=== PATIENT | female | born 1955 | race Caucasian/White ===

== ENCOUNTER 2023-12-12 10:30 | Outpatient (RCR) | payer OTHER, SELFPAY | END 2024-02-09 14:07 | disposition home or self-care (01) | PROVIDERS: PCP Family Medicine; Visit Provider Family Medicine | DX: G43.009 Migraine without aura, not intractable, without status migrainosus (principal); R42 Dizziness and giddiness; Z51.89 Encounter for other specified aftercare | CPT/HCPCS: 95992; 97140; 97163; 97530; 97535 ==

== ENCOUNTER 2024-01-23 11:13 | Emergency (ER) | payer OTHER, SELFPAY ==
[2024-01-23 11:22] VITALS: BP 114/67; PULSE 77; RESP 18; TEMP 36.8; O2SAT 97; BMI 28.2
--- NOTE | 2024-01-23 11:56 | ED.GENADULT ---
HPI - General Adult General Time Seen by Provider: 11:57 Date Seen: 01/23/24 Chief complaint: Lower Extremity Swelling Stated complaint: Left leg poss DVT Time Seen by Provider: 01/23/24 11:50 Source: patient, RN notes reviewed and old records reviewed Mode of arrival: ambulatory Limitations: no limitations History of Present Illness HPI narrative: Rosana is a very pleasant 68-year-old female with history of lung cancer currently on monoclonal antibody as well as chemotherapy drug who comes to the emergency room for evaluation of lower extremity swelling and redness of the left leg. Rosana noted the onset of fluid retention in her lower extremities in November after her 4th round of infusions. She notes that her infusions are likely causing fluid retention. She did note the onset of a red patch on her left leg in the past few weeks. Unfortunately that worsened about a week ago and the redness is now creeping up to her knee. She also notes that her left leg is more swollen than the right and although this has been the case since the onset of lower extremity edema it seems to be worse today. She notes that she did have a sore on her 2nd toe that a today appears healed but has been bothering her. She and her recently returned from a trip to [place]. On that trip she rode horses, road in a [id number] utility vehicle and [place]. She does not remember any injury to this area or open sores. She has not had any fever chills and has not been feeling poorly. No history of DVT in the past. Denies a history of MRSA or hard to treat infections in the past. Patient is not experienced any chest pain, unusual shortness of breath, hemoptysis. Related Data Home Medications ?Medication ?Instructions ?Recorded ?Confirmed clindamycin phosphate 1 % topical 1 applic topical BID 01/23/24 01/23/24 gel clobetasol 0.05 % topical ointment 1 applic topical BID 01/23/24 01/23/24 dexamethasone 0.5 mg/5 mL oral 1 mg PO Q6H 01/23/24 01/23/24 elixir dexamethasone 0.5 mg/5 mL oral 0.5 mg PO Q12H 01/23/24 01/23/24 solution folic acid 1 mg tablet 1 mg PO DAILY 01/23/24 01/23/24 furosemide 20 mg tablet 20 mg PO DAILY 01/23/24 01/23/24 ketoconazole 2 % shampoo topical 01/23/24 lidocaine 5 % topical ointment topical 01/23/24 lorazepam 0.5 mg tablet 0.5 mg PO DAILY PRN anxiety 01/23/24 01/23/24 meclizine 25 mg tablet PO 01/23/24 nortriptyline 10 mg capsule mg PO 01/23/24 nystatin 100,000 unit/mL oral 5 ml PO QID 01/23/24 01/23/24 suspension olanzapine 5 mg tablet 5 mg PO DAILY 01/23/24 01/23/24 omeprazole 40 mg capsule,delayed 40 mg PO DAILY 01/23/24 01/23/24 release ondansetron 4 mg disintegrating 4 mg PO Q8H PRN nausea/vomiting 01/23/24 01/23/24 tablet prochlorperazine maleate 10 mg 10 mg PO Q6H PRN nausea/vomiting 01/23/24 01/23/24 tablet rizatriptan 10 mg tablet 10 mg PO Q2H PRN migraine 01/23/24 01/23/24 triamcinolone acetonide 0.1 % 1 applic topical BID-TID 01/23/24 01/23/24 topical cream Allergies Allergy/AdvReac Type Severity Reaction Status Date / Time aprepitant [From Emend] Allergy Unknown Verified 01/23/24 11:32 fosaprepitant [From Emend] Allergy Unknown Verified 01/23/24 11:32 Review of Systems Status of ROS: Reports: 10 or more systems reviewed and unremarkable except as noted in History and below Const: Denies: fever or chills ENMT: Denies: nasal congestion Cardio: Reports: swelling of feet/ankles and shortness of breath with exertion (Chronic and unchanged); Denies: chest pain Resp: Reports: shortness of breath (Chronic and unchanged); Denies: cough GI: Denies: abdominal pain or nausea Musculo: Reports: extremity swelling (Acute on chronic); Denies: back pain Integ/Breast: Reports: redness and skin pain [facility] Social History Smoking Status: Former smoker How often do you have a drink containing alcohol: never How often do you have six or more drinks on one occasion: Never AUDIT-C Alcohol total score: 0 Non-prescribed substance use: denies use service: No Exam Narrative: Exam Narrative: Alert and oriented. No acute distress. Normal mentation. External ears eyes nose clear. Heart with regular rate and rhythm and lungs are clear bilaterally. Moving all extremities. Examination of the lower extremity show bilateral 1 to 2+ edema. However slightly increased edema on the left compared to right with associated erythema circumferential from just above the ankle to just below the knee. This area is warm to the touch. I do not see any open lesions. Const: Vital Signs, click to edit/add: Vital Signs - 24 hr 01/23/24 11:22 Temperature 98.3 F Pulse Rate [Right Pulse Oximeter] 77 Respiratory Rate 18 Blood Pressure [Ri ght Upper Arm] 114/67 Pulse Oximetry 97 Oxygen Delivery Me thod Room Air Documenting provider has reviewed patient's vital signs: yes Course Course ED Course: At this time differential diagnosis includes but is not limited to DVT, cellulitis, fluid retention secondary to chemotherapy, chemotherapy reaction. Given the fact that this is unilateral do not think this is a reaction to the chemotherapy or monoclonal antibody. Would however check CBC, comprehensive, magnesium as she has been low in the past as well as CRP. Will obtain lower extremity really ultrasound as well. Reevaluation(s) Reevaluation #1: Doppler negative for DVT. Initial plan was to treat suspected cellulitis with Ancef as patient has not had history of MRSA or other difficult to treat infections. Upon further discussion however Rosana notes that she had had an open sore on her toe for quite some time. I do examine this area and is now healed. She states that while in [place] she did go into a [employer] and was waiting in it. It was not particularly clear. Therefore I do think that she needs broader spectrum antibiotic. Do suggest Rocephin which she requests IM 1 g followed by Augmentin 875 p.o. b.i.d. for an additional 6 days. Vital Signs Vital signs: Initial Vital Signs Temperature 98.3 F 01/23/24 11:22 Temperature Source Temporal Artery Scan 01/23/24 11:22 Pulse Rate 77 01/23/24 11:22 Pulse Rhythm Regular 01/23/24 11:22 Pulse Strength 3+ Normal 01/23/24 11:22 Respiratory Rate 18 01/23/24 11:22 Blood Pressure 114/67 01/23/24 11:22 Blood Pressure Mean 82 01/23/24 11:22 Blood Pressure Position Sitting 01/23/24 11:22 Pulse Oximetry 97 01/23/24 11:22 Oxygen Delivery Method Room Air 01/23/24 11:22 Vital Signs Temperature 98.3 F 01/23/24 11:22 Pulse Rate 77 01/23/24 11:22 Respiratory Rate 18 01/23/24 11:22 Blood Pressure 114/67 01/23/24 11:22 Pulse Oximetry 97 01/23/24 11:22 Oxygen Delivery Method Room Air 01/23/24 11:22 Temperature 98.3 F 01/23/24 11:22 Pulse Rate 77 01/23/24 11:22 Respiratory Rate 18 01/23/24 11:22 Blood Pressure 114/67 01/23/24 11:22 Pulse Oximetry 97 01/23/24 11:22 Oxygen Delivery Method Room Air 01/23/24 11:22 Medications Administered Medications: Discontinued Medications Generic Name Dose Route Start Last Admin Trade Name Giuliana PRN Reason Stop Dose Admin Ceftriaxone Sodium 1 gm 01/23/24 13:52 01/23/24 14:00 Ceftriaxone 1 Gm Vial IM 01/23/24 13:53 1 gm ONCE ONE Administration Lidocaine HCl 2.1 ml 01/23/24 13:52 01/23/24 14:00 Lidocaine 1% 5 Ml (Pf) 5 Ml Vial IM 2.1 ml DIRECTED PRN Administration Pain Medical Decision Making MDM Narrative Medical decision making narrative: 1. Cellulitis-Rocephin 1 g IM given in the ED. Will continue with Augmentin 875 p.o. b.i.d. times 6 days next dose this evening. Recommend monitoring this area and seeking medical attention for redness that is increasing, fever, chills, opened area that is draining. At this time ultrasound does not show any evidence of a DVT. Asked that she does wear her support hose and try to elevate legs as much as possible. Suggest warm packs to the cellulitic area. 2. Leukopenia-mild. Previous white count 4.5 in today's is 3.57. 3. History of low magnesium-today's magnesium 1.8. Recommend follow-up with oncology at [facility] for discussion regarding other blood work abnormalities such as low albumin and protein and elevated alkaline phosphatase. 4. Disposition-home at this time. Return for any worsening symptoms. Medical Records Medical records reviewed: Yes I reviewed the patient's medical records Medical records narrative: From primary physician Lab Data Lab results reviewed: Yes I reviewed the patient's lab results Labs: Lab Results 01/23/24 Range/Units 13:09 WBC 3.57 L (4.50-11.00) K/uL RBC 3.17 L (4.00-5.20) m/uL Hgb 10.7 L (12.0-16.0) gm/dL Hct 33.6 (33.0-51.0) % MCV 106 H (80-100) fL MCH 34 (26-34) pg MCHC 32 (32-36) gm/dL RDW Coeff of Marco A 15.8 H (11.5-15.5) % Plt Count 222 (140-440) K/uL Neut % (Auto) 66.9 (42.0-72.0) % Lymph % (Auto) 17.4 L (20-44) % Hughes % (Auto) 7.6 (0.0-11.0) % Eos % (Auto) 7.0 (0.0-7.0) % Baso % (Auto) 0.3 (0.0-3.0) % Neut # (Auto) 2.40 (1.7-7.0) K/uL Lymph # (Auto) 0.60 L (0.90-2.90) K/uL Hughes # (Auto) 0.30 (0.00-0.90) K/UL Eos # (Auto) 0.20 (0.00-0.50) K/uL Baso # (Auto) 0.00 (0.00-0.30) K/uL Abs Immat Gran (auto) 0.00 (0.00-0.30) K/uL Imm/Tot Granulo (auto) 0.8 % Sodium 135 (135-149) mmol/L Potassium 3.4 L (3.6-5.1) mmol/L Chloride 105 (96-114) mmol/L Carbon Dioxide 27 (20-32) mmol/L Anion Gap 3 L (7-15) mEq/L BUN 14 (7-30) mg/dL Creatinine 0.8 (0.5-1.5) mg/dL Estimated Creat Clear 53.81 Estimated GFR 81 ml/min Glucose 86 (60-115) mg/dL Calcium 8.2 L (8.4-10.6) mg/dL Magnesium 1.8 (1.5-2.6) mg/dL Total Bilirubin 0.5 (0.1-1.5) mg/dL AST 38 H (12-35) U/L ALT 31 (4-35) U/L Alkaline Phosphatase 161 H (40-150) U/L C-Reactive Protein 0.9 (0.5-1.0) mg/dL Total Protein 5.5 L (6.0-8.3) g/dL Albumin 2.9 L (3.3-5.0) g/dL Imaging Data Venous US: Attestation: I have reviewed the pertinent imaging results. Radiologist's impression: Deep veins: Sonographic imaging demonstrates the bilateral common femoral, deep femoral, superficial femoral, popliteal, posterior tibial veins to be fully compressible with normal color Doppler blood flow. Superficial veins: Greater saphenous vein are fully compressible. No popliteal cyst. IMPRESSION: No DVT in the bilateral lower extremities. Discharge Plan Discharge Clinical Impression: Cellulitis Patient Disposition: Home, Self-Care Condition: Unchanged Additional Instructions: Start Augmentin an antibiotic this evening. Continue for 6 more days. This is available in our [employer] [facility] machine. Keep well hydrated. Suggest elevation of legs and warm heat to the leg. Seek medical attention/return to the ER for fever, vomiting, worsening symptoms and as needed. Prescriptions: No Action ketoconazole 2 % shampoo topical dexamethasone 0.5 mg/5 mL solution 0.5 mg PO Q12H dexamethasone 0.5 mg/5 mL elixir 1 mg PO Q6H lorazepam 0.5 mg tablet 0.5 mg PO DAILY PRN (Reason: anxiety) folic acid 1 mg tablet 1 mg PO DAILY furosemide 20 mg tablet 20 mg PO DAILY lidocaine 5 % ointment topical nystatin 100,000 unit/mL suspension 5 ml PO QID rizatriptan 10 mg tablet 10 mg PO Q2H PRN (Reason: migraine) olanzapine 5 mg tablet 5 mg PO DAILY prochlorperazine maleate 10 mg tablet 10 mg PO Q6H PRN (Reason: nausea/vomiting) omeprazole 40 mg capsule,delayed release(DR/EC) 40 mg PO DAILY triamcinolone acetonide 0.1 % cream 1 applic topical BID-TID clindamycin phosphate 1 % gel 1 applic topical BID meclizine 25 mg tablet PO nortriptyline 10 mg capsule PO clobetasol 0.05 % ointment 1 applic topical BID ondansetron 4 mg tablet,disintegrating 4 mg PO Q8H PRN (Reason: nausea/vomiting) Follow Up/Referrals: Stuart Santos MD [Primary Care Provider] - Stand Alone Forms: [employer] Info Instructions
--- NOTE | 2024-01-23 12:16 | CRLHL7_ITS ---
For Patients: As a result of the Century Cures Act, medical imaging exams and procedure reports are released immediately into your electronic medical record. You may view this report before your referring provider. If you have questions, please contact your health care provider. INDICATION: Leg pain and swelling. TECHNIQUE: Ultrasound venous duplex bilateral lower extremity. Compression venous exam was performed using luna-scale, color Doppler, and spectral Doppler analysis. COMPARISON: None. FINDINGS: Deep veins: Sonographic imaging demonstrates the bilateral common femoral, deep femoral, superficial femoral, popliteal, posterior tibial veins to be fully compressible with normal color Doppler blood flow. Superficial veins: Greater saphenous vein are fully compressible. No popliteal cyst. IMPRESSION: No DVT in the bilateral lower extremities. Dictated by Bc Manuel MD @ 01/23/2024 1:16:17 PM (Electronically Signed)
[2024-01-23 13:19] LABS: Basophils Percent Auto 0.3 % (0.0-3.0); Hematocrit 33.6 % (33.0-51.0); Hemoglobin* 10.7 gm/dL (12.0-16.0); Immature Granulocytes Pct Auto 0.8 %; Lymphocytes Percent Auto 17.4 % (20-44); Mean Corpuscular HGB Conc 32 gm/dL (32-36); Mean Corpuscular Hemoglobin 34 pg (26-34); Mean Corpuscular Volume 106 fL (80-100); Monocytes Percent Auto 7.6 % (0.0-11.0); Neutrophils Percent Auto 66.9 % (42.0-72.0); Platelet Count* 222 K/uL (140-440); RDW Coefficient of Variation % 15.8 % (11.5-15.5); Red Blood Count 3.17 m/uL (4.00-5.20); White Blood Count* 3.57 K/uL (4.50-11.00)
[2024-01-23 13:26] LABS: Slide Review Reflex No
[2024-01-23 13:48] LABS: Chloride* 105 mmol/L (96-114)
[2024-01-23 13:49] LABS: Albumin* 2.9 g/dL (3.3-5.0)
[2024-01-23] MEDS: LIDOCAINE 1% 5 ml (pf) 5 ML VIAL 2.1 ML IM (14:00)
[2024-01-23] MEDS: cefTRIAXone 1 GM VIAL IM (14:00)
[2024-01-23 14:11] LABS: Potassium* 3.4 mmol/L (3.6-5.1); Sodium* 135 mmol/L (135-149)
[2024-01-23 14:13] LABS: Creatinine* 0.8 mg/dL (0.5-1.5); Est. Creatinine Clearance* 53.81; Estimated Glomerular Filt Rate 81 ml/min
[2024-01-23 14:14] LABS: Alanine Aminotransferase* 31 U/L (4-35); Alkaline Phosphatase* 161 U/L (40-150); Anion Gap 3 mEq/L (7-15); Aspartate Amino Transferase* 38 U/L (12-35); Bilirubin Total* 0.5 mg/dL (0.1-1.5); Carbon Dioxide* 27 mmol/L (20-32); Total Protein* 5.5 g/dL (6.0-8.3)
[2024-01-23 14:15] LABS: Blood Urea Nitrogen* 14 mg/dL (7-30); Calcium* 8.2 mg/dL (8.4-10.6); Magnesium* 1.8 mg/dL (1.5-2.6)
[2024-01-23 14:17] LABS: C Reactive Protein* 0.9 mg/dL (0.5-1.0)
[2024-01-23 14:31] LABS: Glucose* 86 mg/dL (60-115)
== END 2024-01-23 14:06 | disposition home or self-care (01) ==
PROVIDERS: Emergency Provider Family Medicine; PCP Family Medicine
DX: L03.116 Cellulitis of left lower limb (principal); L03.115 Cellulitis of right lower limb
CPT/HCPCS: 36415; 80053; 83735; 85025; 86140; 93970; 96372; 96374; 99284; J0696

== ENCOUNTER 2025-02-07 20:00 | Emergency (ER) | payer BC, SELFPAY ==
--- OUTSIDE RECORDS SUMMARY | 2024-12-31 13:45 | XMS_ITS | Encounter Summary ---
Author Organization [facility] Address [address] [place] [id number] Care Team Providers [place] [employer] Agent Name Role Phone Elsewhere, Pcp Primary Care Provider Unavailabl e Reason for Visit * Reason Onset Date Comments Pre-visit Intake 12/31/2024 * Appointment Request (Routine) - Authorized Specialty Diagnoses / Procedures Referred By Asuncion spencer Referred To Contact Oncology Referral ID Status Reason Start Date Expiration Date V isits Requested Visits Authorized [id number] Authorized 10/30/2024 01/30/2026 1 1 Encounter Details Date Type Department Care Team (Latest Contact Info) Description 12/31/2024 1:45 PM CDT Clinical Communication Virtual Review in [place], [place] [address] [place] [address] Pre-visit Intake Social History Tobacco Use Types Packs/Day Years Used Date Smoking Tobacco: Never Passive Smoke Exposure: Past Smokeless Tobacco: Never Comments:Nonsmoker occasiona l/social in my 20s Passive Exposure Comments:My Dad Alcohol Use Standard Drinks/Week Comments Yes 3 (1 standard drink = 0.6 oz pur e alcohol) socially [facility] Utilities Answer Date Recorded In the past 12 months has e electric, gas, oil, or water company threatened to shut off services in your home? No 03/12/2024 Humiliation, Afraid, Rape, and Kick questionnair e Answer Date Recorded Within the last year, have y ou been afraid of your partner or ex-partner? No 01/01/2023 Within the last year, have y ou been humiliated or emotionally abused in other ways by your partner or ex-partner? No Within the last year, have y ou been kicked, hit, slapped, or otherwise physically hurt by your partner or ex-partner? No 01/01/2023 Within the last year, have y ou been raped or forced to have any kind of sexual activity by your partner or ex-partner? No 01/01/2023 Hunger Vital Sign Answer Date Recorded Within the past 12 months, y ou worried that your food would run out before you got the money to buy more. Never true 03/12/20 24 Within the past 12 months, t he food you bought just didn't last and you didn't have money to get more. Never true 03/12/2024 PRAPARE - Transportation Answer Date Re corded In the past 12 months, has l ack of transportation kept you from medical appointments or from getting medications? No 02/27 In the past 12 months, has l ack of transportation kept you from meetings, work, or from getting things needed for daily living? No 03/12/2024 Housing Stability Answer Date Recorded What is your living situation today? I have a [facility] place to live 03/12/2024 Education Answer Date Recorded What is the highest level of school you have completed or the highest degree you have received? Some college, no degree 01/10/2019 Comments No Sex and Gender Information Value Date Recorded Sex Assigned at Female 05/12/2021 8:37 PM [employer] Legal Sex Female 11:57 AM [employer] Gender Identity Female 01/02/2019 1:16 PM CDT Sexual Orientation Straight 05/12/2021 8: 37 PM [employer] documented as of this encounter Plan of Treatment Upcoming Encounters Date Type Department Care Team (Latest Contact Info) Description 02/25/2025 4:15 PM CDT Clinical Communication Virtual Review in [place], [place] [address] [place] [address] 02/27/2025 8:15 AM CDT Lab Department of Oncology in [place], [place] [address] [place] [phone] Jennifer Corcoran APRN, C.N.P., M.S. [address] [place] [phone] 02/27/2025 10:20 AM CDT Office Visit Department of Oncology in [place], [place] [address] [place] [phone] Jennifer Corcoran APRN, C.N.P., M.S. [address] [place] [phone] 02/27/2025 1:30 PM CDT Infusion Department of Oncology in [place], [place] [address] [place] [phone] Jennifer Corcoran APRN, C.N.P., M.S. [address] [place] [phone] 03/25/2025 1:00 PM CDT Clinical Communication Virtual Review in [place], [place] [address] [place] [address] 03/27/2025 7:00 AM CDT Lab Department of Oncology in [place], [place] [address] [place] [phone] Jennifer Corcoran APRN, C.N.P., M.S. [address] [place] [phone] 03/27/2025 9:00 AM CDT Office Visit Department of Oncology in [place], [place] [address] [place] [phone] Jennifer Corcoran APRN, C.N.P., M.S. [address] [place] [phone] 03/27/2025 10:00 AM CDT Infusion Department of Oncology in [address] [phone] Jennifer Corcoran APRN, C.N.P., M.S. [address] [place] [phone] 03/28/2025 1:00 PM CDT Procedure visit Department of Orthopedic Surgery in [address] [phone] Danika Navarro APRN, C.N.P., D.N.P. [address] [place] [phone] 04/22/2025 12:45 PM [employer] Clinical Communication Virtual Review in [address] [phone] 04/24/2025 7:30 AM HAND [employer] Lab Department of Oncology in [address] [phone] Joshua Fraga M.D. [address] [place] [phone] 04/24/2025 9:40 AM [employer] Office Visit Department of Oncology in [address] [phone] Joshua Fraga M.D. [address] [place] [phone] 04/24/2025 11:00 AM [employer] Infusion Department of Oncology in [address] [phone] Joshua Fraga M.D. [address] [place] [phone] documented as of this encounter Visit Diagnoses Not on filedocumented in this encounter Additional Health Concerns Infection Onset Date Last Indicated Resolved Time Protective Environment 11/08/2024 11/08/2024 documented as of this encounter Care Teams County Agricultural Agent Relationship Specialty Start Date End Date Elsewhere, Pcp PCP - General Family Medicine 01/21/21 documented as of this encounter
--- OUTSIDE RECORDS SUMMARY | 2025-01-02 13:45 | XMS_ITS | Encounter Summary ---
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 [address] [place] [address] Phone: tel: fax: Department of Oncology in [place], [place] [address] [place] [address] Phone: tel: Referral ID Status Reason Start Date Expiration Date V isits Requested Visits Authorized [id number] Pending Review 06/04/2024 16 99 Encounter Details Date Type Department Care Team (Late st Contact Info) Description 01/02/2025 1:45 PM CDT Lab Department of Oncology in [place], [place] [address] [place] [address] Jennifer Corcoran APRN, C.N.P., M.S. 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) (Primary Dx); Encounter For Antineoplastic Chemotherapy; Other Assisted Current Drug Therapy Social History Tobacco Use Types Packs/Day Years Used Date Smoking Tobacco: Never Passive Smoke Exposure: Past Smokeless Tobacco: Never Comments:Nonsmoker occasiona l/social in my 20s Passive Exposure Comments:My Dad Alcohol Use Standard Drinks/Week Comments Yes 3 (1 standard drink = 0.6 oz pur e alcohol) socially [facility] Invenergyities Answer Date Recorded In the past 12 months has e [employer], gas, oil, or water [employer] threatened to shut off services in your [...] your living situation today? I have a [facility] place to live 03/12/2024 Education Answer Date Recorded What is the highest level of school you have completed or the highest degree you have received? Some college, no degree 01/10/2019 Comments No Sex and Gender Information Value Date Recorded Sex Assigned at Female 05/12/2021 8:37 PM CONTINUOUS MINER OPERATOR Legal Sex Female 11:57 AM CONTINUOUS MINER OPERATOR Gender Identity Female 01/02/2019 1:16 PM CDT Sexual Orientation Straight 05/12/2021 8: 37 PM CONTINUOUS MINER OPERATOR documented as of this encounter Plan of Treatment Upcoming Encounters Date Type Department Care Team (Latest Contact Info) Description 02/25/2025 4:15 PM CDT Clinical Communication Virtual Review in [place], [place] [address] [place] [address] 02/27/2025 8:15 AM CDT Lab Department of Oncology in [address] [phone] Jennifer Corcoran APRN, C.N.P., M.S. [address] [place] [phone] 02/27/2025 10:20 AM CDT Office Visit Department of Oncology in [address] [phone] Jennifer Corcoran APRN, C.N.P., M.S. [address] [place] [phone] 02/27/2025 1:30 PM CDT Infusion Department of Oncology in [address] [phone] Jennifer Corcoran APRN, C.N.P., M.S. [address] [place] [phone] 03/25/2025 1:00 PM CDT Clinical Communication Virtual Review in [place], [place] [address] [place] [address] 03/27/2025 7:00 AM CDT Lab Department of Oncology in [place], [place] [address] [place] [phone] Jennifer Corcoran APRN, C.N.P., M.S. [address] [place] [phone] 03/27/2025 9:00 AM CDT Office Visit Department of Oncology in [place], [place] [address] [place] [phone] Jennifer Corcoran APRN, C.N.P., M.S. [address] [place] [phone] 03/27/2025 10:00 AM CDT Infusion Department of Oncology in [place], [place] [address] [place] [phone] Jennifer Corcoran APRN, C.N.P., M.S. [address] [place] [phone] 03/28/2025 1:00 PM CDT Procedure visit Department of Orthopedic Surgery in [address] [phone] Danika Navarro APRN, C.N.P., D.N.P. [address] [place] [phone] 04/22/2025 12:45 PM CONTINUOUS MINER OPERATOR Clinical Communication Virtual Review in [place], [place] [address] [place] [address] 04/24/2025 7:30 AM CONTINUOUS MINER OPERATOR Lab Department of Oncology in [address] [phone] Joshua Fraga M.D. [address] [place] [phone] 04/24/2025 9:40 AM CONTINUOUS MINER OPERATOR Office Visit Department of Oncology in [place], [place] [address] [place] [address] Joshua Fraga M.D. [address] [place] [phone] 04/24/2025 11:00 AM CONTINUOUS MINER OPERATOR Infusion Department of Oncology in [place], [place] [address] [place] [address] Joshua Fraga M.D. 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) Other Assisted Current Drug Therapy COMPREHENSIVE METABOLIC PANEL, S/P Routine 01/02/2025 2:26 PM CDT Encounter For Antineoplastic Chemotherapy 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) Other Pre Wave Assembler Current Drug Therapy documented in this encounter Results * (ABNORMAL) Comprehensive Metabolic Panel (01/02/2025 2:26 PM CDT) Potassium, S 4.3 3.6 - 5.2 mmol/L 01/02/2025 3:15 PM CDT DTL Sodium, S 137 135 - 145 mmol/L 01/02/2025 3:15 PM CDT DTL Chloride, S 106 98 - 107 mmol/L 01/02/2025 3:15 PM CDT DTL Bicarbonate, S 22 22 - 29 mmol/L 01/02/2025 3:15 PM CDT DTL Anion Gap 9 7 - 15 01/02/2025 3:15 PM CDT DTL BUN (Blood Urea Nitrogen), S 13 6 - 21 mg/dL 01/02/2025 3:15 PM CDT DTL Creatinine 1.16(H) 0.59 - 1.04 mg/dL 01/02/2025 3:15 PM CDT DTL Estimated GFR (eGFR) 52(L) >=60 mL/min/BS A 01/02/2025 3:15 PM CDT DTL Comment: Estimated GFR calculated using the 2020 CKD_EPI creatinine equation. Calcium, Total, S 8.0(L) 8.8 - 10.2 mg/dL 01/02/2025 3:15 PM CDT DTL Glucose, S 165(H) 70 - 140 mg/dL 01/02/2025 3:15 PM CDT DTL Protein, Total, S 5.1(L) 6.3 - 7.9 g/dL 01/02/2025 3:15 PM CDT DTL Albumin, S 3.0(L) 3.5 - 5.0 g/dL 01/02/2025 3:15 PM CDT DTL Aspartate Aminotransferase (AST), S 27 8 - 43 U/L 01/02/2025 3:15 PM CDT DTL Alkaline Phosphatase, S 142(H) 35 - 104 U/L 01/02/2025 3:15 PM CDT DTL Alanine Aminotransferase (ALT), S 26 7 - 45 U/L 01/02/2025 3:15 PM CDT DTL Bilirubin, Total, S 0.4 0.0 - 1.2 mg/dL 01/02/2025 3:15 PM CDT DTL Blood (Blood, Venous) 01/02/2025 2:26 PM CDT 01/02/2025 2:38 PM CDT us Jennifer Corcoran APRN, C.N.P., M.S. LAB BLOOD ADD -ON Final Result [facility] [place] [address] [place] [address], [facility] DTL [address] [address] * (ABNORMAL) CBC with Differential, Blood (01/02/2025 2:26 PM CDT) [facility] Hemoglobin 12.6 11.6 - 15.0 g/dL 01/02/2025 2:52 PM CDT DTL Hematocrit 38.3 35.5 - 44.9 % 01/02/2025 2:52 PM CDT DTL Erythrocytes 3.95 3.92 - 5.13 x10(12)/L 01/02/2025 2:52 PM CDT DTL MCV 97.0 78.2 - 97.9 fL 01/02/2025 2:52 PM CDT DTL RBC Distrib Width 14.1 12.2 - 16.1 % 01/02/2025 2:52 PM CDT DTL Platelet Count 201 157 - 371 x10(9)/L 01/02/2025 2:52 PM CDT DTL Leukocytes 3.7 3.4 - 9.6 x10(9)/L 01/02/2025 2:52 PM CDT DTL Neutrophils 3.37 1.56 - 6.45 x10(9)/L 01/02/2025 2:52 PM CDT DHPM Lymphocytes 0.28(L) 0.95 - 3.07 x10(9)/L 01/02/2025 2:52 PM CDT DTL Monocytes 0.08(L) 0.26 - 0.81 x10(9)/L 01/02/2025 2:52 PM CDT DTL Eosinophils <0.03 0.03 - 0.48 x10(9)/L 01/02/2025 2:52 PM CDT DTL Basophils <0.03 0.01 - 0.08 x10(9)/L 01/02/2025 2:52 PM CDT DTL Blood (Blood, Venous) 01/02/2025 2:26 PM CDT 01/02/2025 2:42 PM CDT Jennifer Corcoran APRN, C.N.P., M.S. LAB BLOOD ADD -ON Final Result Performing Organization Address City/[facility] Co de Phone Number [facility] [place] [address] [place] [address], [facility] [address] [place] [address] [facility] [address] [place] [address] * Magnesium (01/02/2025 2:26 PM CDT) Magnesium, S 1.7 1.7 - 2.3 mg/dL 01/02/2025 3:15 PM CDT DTL Blood (Blood, Venous) 01/02/2025 2:26 PM CDT 01/02/2025 2:38 PM CDT us Jennifer Corcoran APRN C.N.P., M.S. 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 5 mL (500 units) of Heparin 100 units/mL to each port/lumen. When IVAD not accessed or infusing: When no infusion to maintain patency flush every 28 days following NaCL flush. 5 mL (500 units) of Heparin 100 units/mL to each port/lumen.Indications:Malignan t 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 (HCC) Given 01/02/2025 2:34 PM CDT 500 Units sodium chloride 0.9 % injection 10-20 mL 10-20 mL, intra-catheter, As needed, line care, Starting on Tue01/02/25 at 1415, When IVAD accessed and infusing: Flush prior to and following infusion, between multiple consecutive infusions. 10 mL to each port/lumen.Indications:Malignan t 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 (HCC) Given 01/02/2025 2:24 PM CDT 10 mL sodium chloride 0.9 % injection 20-40 mL 20-40 mL, intra-catheter, As needed, line care, Starting on Tue01/02/25 at 1415, When IVAD accessed and infusing: Flush prior to blood sampling, post blood transfusion or post blood sampling. 20 mL to each port/lumen.Indications:Malignan t 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 (HCC) Given 01/02/2025 2:34 PM CDT 20 mL documented in this encounter Additional Health Concerns Infection Onset Date Last Indicated Resolved Time Protective Environment 11/08/2024 11/08/2024 documented as of this encounter Care Teams Rocket Engine Mechanic Relationship Specialty Start Date End Date Elsewhere, Pcp PCP - General Family Medicine 01/21/21 documented as of this encounter
--- OUTSIDE RECORDS SUMMARY | 2025-01-02 15:40 | XMS_ITS | Encounter Summary ---
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 [address] [place] [phone] Phone: tel: fax: [facility] Referral ID Status Reason Start Date Expiration Date Visits Re quested Visits Authorized Scheduling Instructions Dr. Fraga is primary oncologist. 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 [address] [place] [address] Phone: tel: fax: [facility] Referral ID Status Reason Start Date Expiration Date Visits Re quested Visits Authorized Scheduling Instructions Dr. Fraga is primary oncologist. 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 [address] [place] [phone] Phone: tel: fax: Department of Oncology in [place], [place] [address] [place] [address] Phone: tel: Referral ID Status Reason Start Date Expiration Date V isits Requested Visits Authorized [id number] Pending Review 06/04/2024 16 99 Encounter Details Date Type Department Care Team (Latest Contact Info) Description 01/02/2025 3:40 PM CDT Office Visit Department of Oncology in [place], [place] [address] [place] [phone] Jennifer Corcoran APRN, C.N.P., M.S. 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 I have a [facility] place to live 03/12/2024 Education Answer Date Recorded What is the highest level of school you have completed or the highest degree you have received? Some college, no degree 01/10/2019 Comments No Sex and Gender Information Value Date Recorded Sex Assigned at Female 05/12/2021 8:37 PM [employer] Legal Sex Female 11:57 AM [employer] Gender Identity Female 01/02/2019 1:16 PM CDT Sexual Orientation Straight 05/12/2021 8: 37 PM [employer] documented as of this encounter Last Filed Vital Signs Vital Sign Reading Time Taken Comments Blood Pressure 101/70 01/02/2025 3:29 PM CDT Pulse 82 01/02/2025 3:29 PM CDT Temperature 36.4 C (97.5 F) 01/02/2025 3:29 PM CDT Respiratory Rate 16 01/02/2025 3:29 PM CDT Oxygen Saturation 96% 01/02/2025 3:29 PM CDT Inhaled Oxygen Concentration - - Weight 77.6 kg (171 lb 1.2 oz) 01/02/2025 3:29 P M CDT Height 167.7 cm (5' 6.02) 01/02/2025 3:29 PM CD T Body Mass Index 27.59 01/02/2025 3:29 PM CDT documented in this encounter Progress Notes * Jennifer Corcoran APRN, C.N.P., M.S. - 01/02/2025 3:40 PM CDT CHIEF COMPLAINT/PURPOSE OF VISIT Primary Oncology Team (Lung Care Team RED): Jennifer Corcoran APRN, C.N.P., M.S. Joshua Fraga M.D. 1. 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 SUBJECTIVE HISTORY OF PRESENT ILLNESS Mrs. Gandhi is a 69 y.o. lifetime never smoker. Oncology history is as follows: Oncology History Secondary Malignant Neoplasm Bone (HCC) 10/2018 Other Presented with hip pain which limited ambulation. MRI showed bilateral intertrochanteric femur lesions in addition to a left sacral lesion, no history of malignancy. CT showed multiple pulmonary nodules concerning for malignancy. 12/25/2018 Surgery and Procedures Prophylactic stabilization left femur (pathologic fracture), and biopsy. Metastatic adenocarcinoma.EGFR [id number]. 12/27/2018 Surgery and Procedures Fixation, prophylactic nails, plates, curettage tumor of right femur. Metastatic moderately to poorly differentiated adenocarcinoma. 01/10/2019 Other PET: Stage IV lung cancer. Brain MR: Multifocal brain metastases 01/16/2019 Surgery and Procedures Gamma knife radiosurgery was performed. 6 tumors involving the left parietal lobe, the left frontallobe (2 tumors), vermis and right cerebellum (2 tumors) were treated. The combined tumor volume at all of these sites was 2.0 cubic centimeters. The tumor margin dose for each tumor was 22 Gy. The tumor maximum dose ranged from 24.4 Gy to 33.8 Gy. 01/24/2019 - 01/31/2019 Radiation Therapy Patient treated with radiotherapy to the left femur, right femur and left sacrum with each area receiving 2000 cGy in 5 fractions. 02/09/2019 - Biological/Targeted/Hormone Therapy Osimertinib 80 mg once daily. 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 12/22/2020 - 01/01/2021 Radiation Therapy Radiation Therapy Treatment Details (12/22/2020 - 01/01/2021) Site: Right Lung - [place] Technique: IMRT Goal: Curative Planned Treatment Start Date: 12/22/2020 06/08/2021 Other COVID-19 infection She had symptoms of a cold for approximately a week, but generally did well with this. 07/01/2023 Progression/Relapse PET with new pleural effusion, pleural nodule, RUL nodule, L sacrum Tumor Board Consensus was to proceed with biopsy of the right upper lobe nodule via bronchoscopy if the sacral biopsy tissue is insufficient for genetic testing. 09/19/2023 - Chemotherapy CARBOplatin / PEMEtrexed / Amivantamab-vmjw 2100 mg Start Date: 09/19/2023 Cycle 3: Due to EGFR-inhibitor dermatologic ADRs (including skin rash and mucositis), patient's Amivantamab dose was NOT escalated to target dose of 2100 mg at cycle 3. Since 1750 mg was not tolerated, decreased to 1400 mg (Dose Level - 2). Cycle 4: Due to continued EGFR-inhibitor dermatologic ADRs (including skin rash and mucositis and vaginal mucositis). Amivantamab dose decreased to 1050 mg (50% of target dose; Off-Label Dosing). 02/28/2024 - Chemotherapy PEMEtrexed / Amivantamab-vmjw 700 mg (Target Dose Not Tolerated) Start Date: 02/28/2024 INTERVAL HISTORY Mrs. Gandhi presents today accompanied by her for consideration of her next cycle of therapy. She continues to tolerate treatment reasonably well. She notes feeling better with treatment every 4 weeks instead of every 3 weeks. ROS Pertinent items are noted in HPI; all other systems reviewed and negative. OBJECTIVE No data recorded VITAL SIGNS Vitals: 01/02/25 1529 BP: 101/70 BP Location: Left arm Patient Position: Sitting Cuff Size: Regular Pulse: 82 Resp: 16 Temp: 36.4 ??C TempSrc: Temporal SpO2: 96% Weight: 77.6 kg Height: 167.7 cm PHYSICAL EXAM General: Alert, oriented. Responds appropriately to questions. No acute distress. Skin: No rashes. No jaundice. Eyes: Anicteric. ENT: Oral mucosa pink and moist. No oral lesions. Lymph: No palpable cervical or supraclavicular lymphadenopathy. Heart: S1, S2. Regular rate and rhythm. No murmurs or extra sounds appreciated. Lungs: Clear to auscultation bilaterally. Extremities: No significant peripheral edema, cyanosis, or clubbing. DIAGNOSTICS Laboratory studies of 12/31/2024 reviewed. 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 Gandhi is stable. Ms. Gandhi notes feeling better with every 4 week treatment (rather than every 3 week treatment). Laboratory studies and performance status are adequate to proceed with therapy as scheduled. She remains on daily folic acid and took dexamethasone as prescribed. Will administer vitamin B12 with treatment tomorrow. She will return to clinic in approximately 4 weeks for consideration of her next cycle of therapy following imaging (CT chest, abdomen, pelvis + MRI head). #Elevated creatinine 1.16. Clearance adequate to proceed with therapy. Encouraged her to increase oral hydration and avoid NSAIDs. #Fatigue Stable. Likely cumulative toxicity from therapy, coupled with metastatic cancer and deconditioning. Cortisol and TSH have been normal when assessed previously. Encouraged slowly increasing aerobic activity, as tolerated. 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 Explained diagnosis and treatment plan; patient expressed understanding of the content. I personally spent 40 minutes in care of the patient today. Time includes both cut-weiu-je-face [id number] patient care. documented in this encounter Plan of Treatment Upcoming Encounters Date Type Department Care Team (Latest Contact Info) Description 02/25/2025 4:15 PM CDT Clinical Communication Virtual Review in [address] [phone] 02/27/2025 8:15 AM CDT Lab Department of Oncology in [address] [phone] Jennifer Corcoran APRN, Coretta.N.P., M.S. [address] [place] [phone] 02/27/2025 10:20 AM CDT Office Visit Department of Oncology in [address] [phone] Jennifer Corcoran APRN, C.N.P., M.S. [address] [place] [phone] 02/27/2025 1:30 PM CDT Infusion Department of Oncology in [address] [phone] Jennifer Corcoran APRN, C.N.P., M.S. [address] [place] [phone] 03/25/2025 1:00 PM CDT Clinical Communication Virtual Review in [address] [phone] 03/27/2025 7:00 AM CDT Lab Department of Oncology in [address] [place] [address] Jennifer Cocroran APRN, Coretta.N.P., M.S. [address] [place] [phone] 03/27/2025 9:00 AM CDT Office Visit Department of Oncology in [place], [place] [address] [place] [phone] Jennifer Corcoran APRN C.N.P., M.S. [address] [place] [phone] 03/27/2025 10:00 AM CDT Infusion Department of Oncology in [address] [phone] Jennifer Corcoran APRN, C.N.P., M.S. [address] [place] [phone] 03/28/2025 1:00 PM CDT Procedure visit Department of Orthopedic Surgery in [address] [phone] Danika Navarro APRN, C.N.P., D.N.P. [address] [place] [phone] 04/22/2025 12:45 PM [employer]ICE [employer]IDENT NETWORK Clinical Communication Virtual Review in [place], [place] [address] [place] [phone] 04/24/2025 7:30 AM [employer]ICE [employer] Lab Department of Oncology in [address] [phone] Joshua Fraga M.D. [address] [place] [phone] 04/24/2025 9:40 AM [employer] Office Visit Department of Oncology in [address] [place] [address] Joshua Fraga M.D. 200 [place] [address] 04/24/2025 11:00 AM [employer]ICE [employer] Infusion Department of Oncology in [place], [place] [address] [place] [address] Joshua Fraga M.D. 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) Encounter For Antineoplastic Chemotherapy Other Shelter Current Drug Therapy Expected: 02/25/2025, Expires: 02/25/2026 Magnesium Lab Routine 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) Encounter For Antineoplastic Chemotherapy Other [facility] Current Drug Therapy Expected: 03/25/2025, Expires: 03/25/2026 CBC with Differential, Blood Lab Routine 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) Encounter For Antineoplastic Chemotherapy Other Shelter Current Drug Therapy Expected: 03/25/2025, Expires: 03/24/2028 Comprehensive Metabolic Panel Lab Routine 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) Encounter For Antineoplastic Chemotherapy Other [facility] Current Drug Therapy Expected: 03/25/2025, Expires: 03/25/2026 Scheduled Referrals Name Type Priority Associated Diagnoses Orde r Schedule Oncology office visit (clinic) Outpatient Referral Routine 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) Encounter For Antineoplastic Chemotherapy Other Shelter Current Drug Therapy Expected: 02/25/2025, Expires: 02/25/2026 Oncology office visit (clinic) Outpatient Referral Routine 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) Encounter For Antineoplastic Chemotherapy Other [facility] Current Drug Therapy Expected: 03/25/2025, Expires: 03/25/2026 documented as of this encounter Visit Diagnoses Diagnosis 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
--- OUTSIDE RECORDS SUMMARY | 2025-01-03 08:00 | XMS_ITS | Encounter Summary ---
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 [address] [place] [address] Phone: tel: fax: Department of Oncology in [place], [place] [address] [place] [address] Phone: tel: Referral ID Status Reason Start Date Expiration Date V isits Requested Visits Authorized [id number] Pending Review 06/04/2024 16 99 Encounter Details Date Type Department Care Team (Late st Contact Info) Description 01/03/2025 8:00 AM CDT Infusion Department of Oncology in [place], [place] [address] [place] [address] Jennifer Corcoran APRN, C.N.P., M.S. 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 I have a [facility] place to live 03/12/2024 Education Answer Date Recorded What is the highest level of school you have completed or the highest degree you have received? Some college, no degree 01/10/2019 Comments No Sex and Gender Information Value Date Recorded Sex Assigned at Female 05/12/2021 8:37 PM INVESTIGATOR NARCOTICS Legal Sex Female 11:57 AM INVESTIGATOR NARCOTICS Gender Identity Female 01/02/2019 1:16 PM CDT Sexual Orientation Straight 05/12/2021 8: 37 PM INVESTIGATOR NARCOTICS documented as of this encounter Last Filed Vital Signs Vital Sign Reading Time Taken Comments Blood Pressure 136/72 01/03/2025 8:53 AM CDT Pulse 74 01/03/2025 8:53 AM CDT Temperature 36.4 C (97.5 F) 01/03/2025 8:53 AM CDT Respiratory Rate - - Oxygen Saturation - - Inhaled Oxygen Concentration - - Weight 77.3 kg (170 lb 8.4 oz) 01/03/2025 8:53 A M CDT Height - - Body Mass Index 27.5 01/02/2025 3:29 PM CDT documented in this encounter Plan of Treatment Upcoming Encounters Date Type Department Care Team (Latest Contact Info) Description 02/25/2025 4:15 PM CDT Clinical Communication Virtual Review in [place], [place] [address] [place] [phone] 02/27/2025 8:15 AM CDT Lab Department of Oncology in [place], [place] [address] [place] [phone] Jennifer Corcoran APRN, C.N.P., M.S. [address] [place] [phone] 02/27/2025 10:20 AM CDT Office Visit Department of Oncology in [place], [place] [address] [place] [phone] Jenniefr Corcoran APRN, C.N.P., M.S. [address] [place] [phone] 02/27/2025 1:30 PM CDT Infusion Department of Oncology in [place], [place] [address] [place] [phone] Jennifer Corcoran APRN, C.N.P., M.S. [address] [place] [phone] 03/25/2025 1:00 PM CDT Clinical Communication Virtual Review in [place], [place] [address] [place] [address] 03/27/2025 7:00 AM CDT Lab Department of Oncology in [place], [place] [address] [place] [phone] Jennifer Corcoran APRN, C.N.P., M.S. [address] [place] [phone] 03/27/2025 9:00 AM CDT Office Visit Department of Oncology in [place], [place] [address] [place] [phone] Jennifer Corcoran APRN, C.N.P., M.S. [address] [place] [phone] 03/27/2025 10:00 AM CDT Infusion Department of Oncology in [place], [place] [address] [place] [phone] Jennifer Corcoran APRN, C.N.P., M.S. [address] [place] [phone] 03/28/2025 1:00 PM CDT Procedure visit Department of Orthopedic Surgery in [place], [place] [address] [place] [address] Danika Navarro APRN, C.N.P., D.N.PZena [address] [place] [phone] 04/22/2025 12:45 PM INVESTIGATOR NARCOTICS Clinical Communication Virtual Review in [place], [place] [address] [place] [address] 04/24/2025 7:30 AM INVESTIGATOR NARCOTICS Lab Department of Oncology in [address] [phone] Joshua Fraga M.D. [address] [place] [phone] 04/24/2025 9:40 AM INVESTIGATOR NARCOTICS Office Visit Department of Oncology in [address] [phone] Joshua Fraga M.D. [address] [place] [phone] 04/24/2025 11:00 AM INVESTIGATOR NARCOTICS Infusion Department of Oncology in [address] [phone] Joshua Fraga M.D. 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) documented in this encounter Administered Medications Inactive Administered Medications - up to 3 most recent administrations Medication Order MAR Action Action Date Dose Rate Site acetaminophen tablet 650 mg (TylenoL) 650 mg, oral, Once, On Stormy 01/03/25 at 0915, For 1 dose, Administer 30 to 60 minutes prior to amivantamab-vmjw.Indicati ons:Encounter For Antineoplastic Chemotherapy,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),Other Electrical Checkout Mechanic Current Drug Therapy Given 01/03/2025 9:09 AM CDT 650 mg amivantamab-vmjw 700 mg in NaCl 0.9% 250 mL IVPB (Rybrevant) 700 mg, intravenous, at 125 mL/hr, Administer over 2 Hours, Once, On Stormy 01/03/25 at 0945, For 1 dose, Administer immediately after completing PEMEtrexed. Do not shake. Cycle 1, Days 1, 2, and 8 should be infused via peripheral line. Administer via an infusion set fitted with a flow regulator and with a 0.2 or 0.22 micron filter primed with diluent only. Use administration sets made of either polyethylene, polypropylene, polyurethane, polybutadiene, or PVC .Indications:Encounter For Antineoplastic Chemotherapy,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),Other Electrical Checkout Mechanic Current Drug Therapy New Bag 01/03/2025 9:43 AM CDT 700 mg 125 mL/hr cyanocobalamin 1,000 mcg/mL injection 1,000 mcg (Vitamin B-12) 1,000 mcg, intramuscular, Once, On Stormy 01/03/25 at 0915, For 1 doseIndications:Encounter For Antineoplastic Chemotherapy,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),Other Long-Term Current Drug Therapy Given 01/03/2025 9:09 AM CDT 1,000 mcg Left Deltoid diphenhydrAMINE injection 25 mg (BenadryL) 25 mg, intravenous, Once, On Stormy 01/03/25 at 0915, For 1 dose, Administer 15 to 30 minutes prior to amivantamab-vmjw.Indicati ons:Encounter For Antineoplastic Chemotherapy,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),Other Long-Term Current Drug Therapy Given 01/03/2025 9:09 AM CDT 25 mg ondansetron (PF) injection 8 mg (Zofran) 8 mg, intravenous, Once, On Stormy 01/03/25 at 0915, For 1 doseIndications:Encounter For Antineoplastic Chemotherapy,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),Other Electrical Checkout Mechanic Current Drug Therapy Given 01/03/2025 9:09 AM CDT 8 mg PEMEtrexed disodium 800 mg in NaCl 0.9% 142 mL IVPB (Alimta) 800 mg (rounded from 760 mg = 400 mg/m2 1.9 m2 Treatment Plan BSA from Measured weight), intravenous, at 852 mL/hr, Administer over 10 Minutes, Once, On Stormy 8/7/25 at 0915, For 1 doseIndications:Encounter For Antineoplastic Chemotherapy,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),Other Electrical Checkout Mechanic Current Drug Therapy New Bag 01/03/2025 9:25 AM CDT 800 mg 852 mL/hr sodium chloride 0.9 % injection 20-40 mL 20-40 mL, intra-catheter, As needed, line care, Starting on Stormy 01/03/25 at 0859, When IVAD accessed and infusing: Flush prior to blood sampling, post blood transfusion or post blood sampling. 20 mL to each port/lumen.Indications:Ma lignant 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 (HCC) Given 01/03/2025 9:41 AM CDT 20 mL documented in this encounter Additional Health Concerns Infection Onset Date Last Indicated Resolved Time Protective Environment 11/08/2024 11/08/2024 documented as of this encounter Care Teams Butcher All Round Relationship Specialty Start Date End Date Elsewhere, Pcp PCP - General Family Medicine 01/21/21 documented as of this encounter
--- OUTSIDE RECORDS SUMMARY | 2025-01-31 12:15 | XMS_ITS | Encounter Summary ---
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 [address] [place] [address] Phone: tel: fax: Department of Oncology in [place], [place] [address] [place] [address] Phone: tel: Referral ID Status Reason Start Date Expiration Date V isits Requested Visits Authorized [id number] Pending Review 06/04/2024 16 99 Encounter Details Date Type Department Care Team (Late st Contact Info) Description 01/31/2025 12:15 PM CDT Lab Department of Oncology in [place], [place] [address] [place] [address] Jennifer Corcoran APRN, C.N.P., M.S. 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) (Primary Dx); Encounter For Antineoplastic Chemotherapy; Other Residential Current Drug Therapy Social History Tobacco Use Types Packs/Day Years Used Date Smoking Tobacco: Never Passive Smoke Exposure: Past Smokeless Tobacco: Never Comments:Nonsmoker occasiona l/social in my 20s Passive Exposure Comments:My Dad Alcohol Use Standard Drinks/Week Comments Yes 3 (1 standard drink = 0.6 oz pur e alcohol) socially [facility] [employer] Answer Date Recorded In the past 12 months has e eReceipts, gas, oil, or water [employer] threatened to shut off services in your [...] your living situation today? I have a [facility] place to live 03/12/2024 Education Answer Date Recorded What is the highest level of school you have completed or the highest degree you have received? Some college, no degree 01/10/2019 Comments No Sex and Gender Information Value Date Recorded Sex Assigned at Female 05/12/2021 8:37 PM THIRD GRADE TEACHER Legal Sex Female 11:57 AM THIRD GRADE TEACHER Gender Identity Female 01/02/2019 1:16 PM CDT Sexual Orientation Straight 05/12/2021 8: 37 PM THIRD GRADE TEACHER documented as of this encounter Plan of Treatment Upcoming Encounters Date Type Department Care Team (Latest Contact Info) Description 02/25/2025 4:15 PM CDT Clinical Communication Virtual Review in [place], [place] [address] [place] [phone] 02/27/2025 8:15 AM CDT Lab Department of Oncology in [address] [phone] Jennifer Corcoran APRN, C.N.P., M.S. [address] [place] [phone] 02/27/2025 10:20 AM CDT Office Visit Department of Oncology in [address] [phone] Jennifer Corcoran APRN, C.N.P., M.S. [address] [place] [phone] 02/27/2025 1:30 PM CDT Infusion Department of Oncology in [address] [phone] Jennifer Corcoran APRN, C.N.P., M.S. [address] [place] [place] [phone] 03/25/2025 1:00 PM CDT Clinical Communication Virtual Review in [place], [place] [address] [place] [address] 03/27/2025 7:00 AM CDT Lab Department of Oncology in [place], [place] [address] [place] [phone] Jennifer Corcoran APRN, C.N.P., M.S. [address] [place] [place] [phone] 03/27/2025 9:00 AM CDT Office Visit Department of Oncology in [place], [place] [address] [place] [phone] Jennifer Corcoran APRN, C.N.P., M.S. [address] [place] [place] [phone] 03/27/2025 10:00 AM CDT Infusion Department of Oncology in [place], [place] [address] [place] [phone] Jennifer Corcoran APRN, C.N.P., M.S. [address] [place] [place] [phone] 03/28/2025 1:00 PM CDT Procedure visit Department of Orthopedic Surgery in [address] [phone] Danika Navarro APRN, C.N.P., D.N.P. [address] [place] [place] [phone] 04/22/2025 12:45 PM THIRD GRADE TEACHER Clinical Communication Virtual Review in [place], [place] [address] [place] [address] 04/24/2025 7:30 AM THIRD GRADE TEACHER Lab Department of Oncology in [address] [address] Joshua Fraga M.D. [address] [place] [phone] 04/24/2025 9:40 AM THIRD GRADE TEACHER Office Visit Department of Oncology in [place], [place] [address] [place] [address] Joshua Fraga M.D. [address] [place] [place] [phone] 04/24/2025 11:00 AM THIRD GRADE TEACHER Infusion Department of Oncology in [place], [place] [address] [place] [address] Joshua Fraga M.D. 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) Other Residential Current Drug Therapy COMPREHENSIVE METABOLIC PANEL, S/P Routine 01/31/2025 12:40 PM CDT Encounter For Antineoplastic Chemotherapy 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) Other Claim Benefit Specialist Current Drug Therapy documented in this encounter Results * (ABNORMAL) Comprehensive Metabolic Panel (01/31/2025 12:40 PM CDT) Potassium, S 4.4 3.6 - 5.2 mmol/L 01/31/2025 2:18 PM CDT DTL Sodium, S 141 135 - 145 mmol/L 01/31/2025 2:18 PM CDT DTL Chloride, S 108(H) 98 - 107 mmol/L 01/31/2025 2:18 PM CDT DTL Bicarbonate, S 20(L) 22 - 29 mmol/L 01/31/2025 3:03 PM CDT DTL Anion Gap 13 7 - 15 01/31/2025 3:03 PM CDT DTL BUN (Blood Urea Nitrogen), S 11 6 - 21 mg/dL 01/31/2025 2:18 PM CDT DTL Creatinine 0.99 0.59 - 1.04 mg/dL 01/31/2025 2:18 PM CDT DTL Estimated GFR (eGFR) 62 >=60 mL/min/BS A 01/31/2025 2:18 PM CDT DTL Comment: Estimated GFR calculated using the 2020 CKD_EPI creatinine equation. Calcium, Total, S 7.9(L) 8.8 - 10.2 mg/dL 01/31/2025 2:18 PM CDT DTL Glucose, S 126 70 - 140 mg/dL 01/31/2025 2:18 PM CDT DTL Protein, Total, S 5.1(L) 6.3 - 7.9 g/dL 01/31/2025 2:18 PM CDT DTL Albumin, S 3.0(L) 3.5 - 5.0 g/dL 01/31/2025 2:18 PM CDT DTL Aspartate Aminotransferase (AST), S 34 8 - 43 U/L 01/31/2025 2:18 PM CDT DTL Alkaline Phosphatase, S 147(H) 35 - 104 U/L 01/31/2025 2:18 PM CDT DTL Alanine Aminotransferase (ALT), S 27 7 - 45 U/L 01/31/2025 2:18 PM CDT DTL Bilirubin, Total, S 0.4 0.0 - 1.2 mg/dL 01/31/2025 2:18 PM CDT DTL Blood (Blood, Venous) 01/31/2025 12:40 PM CDT 01/31/2025 12:49 PM CDT us Jennifer Corcoran APRN, C.N.P., M.S. LAB BLOOD ADD -ON Final Result [facility] [address] [place] [address], [place] DTL [facility] [address] [place] [address] * (ABNORMAL) CBC with Differential, Blood (01/31/2025 12:40 PM CDT) Pathologist [facility] Hemoglobin 12.8 11.6 - 15.0 g/dL 01/31/2025 12:59 PM CDT DTL Hematocrit 38.9 35.5 - 44.9 % 01/31/2025 12:59 PM CDT DTL Erythrocytes 4.05 3.92 - 5.13 x10(12)/L 01/31/2025 12:59 PM CDT DTL MCV 96.0 78.2 - 97.9 fL 01/31/2025 12:59 PM CDT DTL RBC Distrib Width 14.1 12.2 - 16.1 % 01/31/2025 12:59 PM CDT DTL Platelet Count 197 157 - 371 x10(9)/L 01/31/2025 12:59 PM CDT DTL Leukocytes 3.8 3.4 - 9.6 x10(9)/L 01/31/2025 12:59 PM CDT DTL Neutrophils 3.41 1.56 - 6.45 x10(9)/L 01/31/2025 12:59 PM CDT DHPM Lymphocytes 0.29(L) 0.95 - 3.07 x10(9)/L 01/31/2025 12:59 PM CDT DTL Monocytes 0.08(L) 0.26 - 0.81 x10(9)/L 01/31/2025 12:59 PM CDT DTL Eosinophils <0.03 0.03 - 0.48 x10(9)/L 01/31/2025 12:59 PM CDT DTL Basophils <0.03 0.01 - 0.08 x10(9)/L 01/31/2025 12:59 PM CDT DTL Blood (Blood, Venous) 01/31/2025 12:40 PM CDT 01/31/2025 12:51 PM CDT us Jennifer Corcoran APRN, C.N.P., M.S. LAB BLOOD ADD -ON Final Result Performing Organization Address [facility] Co de Phone Number [facility] [place] [address] [place] [address], [facility] [address] [place] [address] [facility] [address] [place] [address] * (ABNORMAL) Magnesium (01/31/2025 12:40 PM CDT) Magnesium, S 1.6(L) 1.7 - 2.3 mg/dL 01/31/2025 2:18 PM CDT DTL Blood (Blood, Venous) 01/31/2025 12:40 PM CDT 01/31/2025 12:49 PM CDT Jennifer Corcoran APRN, C.N.P., M.S. 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 5 mL (500 units) of Heparin 100 units/mL to each port/lumen. When IVAD not accessed or infusing: When no infusion to maintain patency flush every 28 days following NaCL flush. 5 mL (500 units) of Heparin 100 units/mL to each port/lumen.Indications:Maligna nt 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 (HCC) Given 01/31/2025 12:26 PM CDT 500 Units sodium chloride 0.9 % injection 20-40 mL 20-40 mL, intra-catheter, As needed, line care, Starting on Stormy 01/31/25 at 1223, When IVAD accessed and infusing: Flush prior to blood sampling, post blood transfusion or post blood sampling. 20 mL to each port/lumen.Indications:Maligna nt 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 (HCC) Given 01/31/2025 12:26 PM CDT 30 mL documented in this encounter Additional Health Concerns Infection Onset Date Last Indicated Resolved Time Protective Environment 11/08/2024 11/08/2024 documented as of this encounter Care Teams Meter Attendant Relationship Specialty Start Date End Date Elsewhere, Pcp PCP - General Family Medicine 01/21/21 documented as of this encounter
--- OUTSIDE RECORDS SUMMARY | 2025-01-31 12:55 | XMS_ITS | Encounter Summary ---
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 [address] [place] [phone] Phone: tel: fax: [facility] Referral ID Status Reason Start Date Expiration Date Visits Re quested Visits Authorized [id number] Closed 10/29/2024 01/29/2026 1 1 Encounter Details Date Type Department Care Team (Latest Contact Info) Description 01/31/2025 12:55 PM CDT - 01/31/2025 2:03 PM CDT Hospital Encounter Department of Radiology, [place] [facility], in [place], [place] [address] [place] [phone] Jennifer Corcoran APRN, C.N.P., M.S. 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 I have a [facility] place to live 03/12/2024 Education Answer Date Recorded What is the highest level of school you have completed or the highest degree you have received? Some college, no degree 01/10/2019 Comments No Sex and Gender Information Value Date Recorded Sex Assigned at Female 05/12/2021 8:37 PM SENIOR COMMUNICATIONS ENGINEER Legal Sex Female 11:57 AM SENIOR COMMUNICATIONS ENGINEER Gender Identity Female 01/02/2019 1:16 PM CDT Sexual Orientation Straight 05/12/2021 8: 37 PM SENIOR COMMUNICATIONS ENGINEER documented as of this encounter Medications at Time of Discharge aprepitant (Emend) 125 mg (1)- 80 mg (2) kitIndications:pre vention of chemotherapy-induc ed nausea and vomiting Indications: prevent nausea and vomiting from cancer chemotherapy. Take as directed. Take 125 mg 1 hour prior to chemotherapy on day 1, followed by 80 mg once daily on days 2 and 3 each cycle. 1 kit 5 5 cannabidiol, CBD, (CANNABIDIOL ORAL) Take 5 mg by mouth at bedtime as needed (Sleep / insomnia). 4 nights per week. chlorhexidine (Hibiclens) 4 % external solution Apply 1 Application topically as directed. Chlorhexidine soak 1:1 with warm water (10-15 minutes) 2 to 3 times daily. 120 mL 2 5 clindamycin (Cleocin T) 1 % gelIndications:Mal ignant Neoplasm Of Bronchus And Lung Right (HCC) APPLY 1 APPLICATION TOPICALLY DIRECTED. IF RASH PRESENTS, APPLY TO SKIN TWICE DAILY. SEPARATE FROM OTHER CREAMS BY 10 MINUTES. 60 g 4 clobetasoL (Temovate) 0.05 % ointment Apply 1 Application topically 2 (two) times a day. Apply to affected area. 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 TAKE WITH FOOD THE DAY BEFORE, DAY OF, AND DAY AFTER PEMETREXED. 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 Unsure of strength of product at home. 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 90 tablet 2 5 hydrocortisone 1 % cream Apply 1 Application topically 2 (two) times a day. Apply topically 2 (two) times a day 2 weeks on / 1 week off. Apply thin layer to face twice daily for prevention/treat of rash. 4 ketoconazole (Nizoral) 2 % shampoo APPLY TO DAMP SKIN, LATHER, LEAVE ON 5 MINUTES, AND RINSE. USE TWICE WEEKLY FOR FIRST MONTH OF AMIVANTANAB, THEN ONCE TO TWICE WEEKLY NEEDED 120 mL 2 10/29/2024 3:30 PM CDT 5 magnesium oxide (Mag-Ox) 400 mg (241.3 mg magnesium) tablet TAKE ONE TABLET BY MOUTH THREE TIMES DAILY BEFORE MEALS. CONTACT ONCOLOGY TEAM IF YOU DEVELOP DIARRHEA 120 tablet 3 5 meclizine (Antivert) 25 mg chewable tablet Chew 1 tablet (25 mg total) 3 (three) times a day as needed for movement disorders. Administer first dose 30 to 60 minutes prior to exposure 5 miconazole 2 % cream Apply 1 Application topically 2 (two) times a day. Apply to the vulva twice a day for 14 days. 28.35 g 1 4 mupirocin (Bactroban) 2 % ointment Apply 1 Application topically 3 (three) times a day. Apply to great toes. 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 Days 1 through 4 of each cycle. May take longer if needed. 30 tablet 1 5 omeprazole (PriLOSEC) [address] capsule Take 40 mg by mouth every morning before breakfast. 3 ondansetron ODT (Zofran-ODT) 4 mg disintegrating tablet Dissolve 1 tablet (4 mg total) in the mouth daily. 30 tablet 1 11/08/2024 12:15 PM CDT 5 peg 400-propylene glycol (Systane) 0.4-0.3 % ophthalmic solution Administer 1 drop into both eyes 3 (three) times a day. Once or twice weekly prochlorperazine (Compazine) 10 mg tablet Take 1 tablet (10 mg total) by mouth daily as needed for nausea or vomiting. If nausea persists despite use of ondansetron. 5 rizatriptan (MAXALT) 10 mg tablet Take 1 tablet by mouth once as needed for migraine. 9 sennosides (senna) 8.6 mg tablet Take 1-2 tablets (8.6-17.2 mg total) by mouth at bedtime as needed for constipation (Constipation despite use of oral magnesium). May increase as needed to 2 tablets at night or one twice daily 5 sodium bicarbonate 0.18 mEq/mL (1.5 %) oral solution (rinse) Swish and spit 10 mL 4 (four) times a day after meals and bedtime. documented as of this encounter Plan of Treatment Upcoming Encounters Date Type Department Care Team (Latest Contact Info) Description 02/25/2025 4:15 PM CDT Clinical Communication Virtual Review in [place], [place] [address] [place] [phone] 02/27/2025 8:15 AM CDT Lab Department of Oncology in [address] [phone] Jennifer Corcoran APRN, C.N.P., M.S. [address] [place] [phone] 02/27/2025 10:20 AM CDT Office Visit Department of Oncology in [address] [phone] Jennifer Corcoran APRN, C.N.P., M.S. [address] [place] [phone] 02/27/2025 1:30 PM CDT Infusion Department of Oncology in [place], [place] [address] [place] [phone] Jennifer Corcoran APRN, C.N.P., M.S. [address] [place] [phone] 03/25/2025 1:00 PM CDT Clinical Communication Virtual Review in [place], [place] [address] [place] [phone] 03/27/2025 7:00 AM CDT Lab Department of Oncology in [place], [place] [address] [place] [phone] Jennifer Corcoran APRN, C.N.P., M.S. [address] [place] [phone] 03/27/2025 9:00 AM CDT Office Visit Department of Oncology in [place], [place] [address] [place] [phone] Jennifer Corcoran APRN, C.N.P., M.S. [address] [place] [phone] 03/27/2025 10:00 AM CDT Infusion Department of Oncology in [address] [phone] Jennifer Corcoran APRN, C.N.P., M.S. [address] [place] [phone] 03/28/2025 1:00 PM CDT Procedure visit Department of Orthopedic Surgery in [address] [phone] Danika Navarro APRN, C.N.P., D.N.P. [address] [place] [phone] 04/22/2025 12:45 PM SENIOR COMMUNICATIONS ENGINEER Clinical Communication Virtual Review in [place], [place] [address] [place] [phone] 04/24/2025 7:30 AM SENIOR COMMUNICATIONS ENGINEER Lab Department of Oncology in [address] [phone] Joshua Fraga M.D. [address] [place] [phone] 04/24/2025 9:40 AM SENIOR COMMUNICATIONS ENGINEER Office Visit Department of Oncology in [address] [phone] Joshua Fraga M.D. [address] [place] [phone] 04/24/2025 11:00 AM SENIOR COMMUNICATIONS ENGINEER Infusion Department of Oncology in [address] [phone] Joshua Fraga M.D. 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 No new or increasing metastatic disease in abdomen and pelvis. Narrative 01/31/2025 2:07 PM CDT EXAM: CT ABDOMEN PELVIS WITH IV CONTRAST COMPARISON: CT 10/28/2024 FINDINGS: No definite liver metastases. Subcapsular focal fat infiltration in the left lobe (3/25). Negative adrenals. No lymphadenopathy. Nondilated small bowel. Colonic diverticulosis. No ascites or peritoneal lesions. Upper abdominal collaterals. Tiny nonobstructing left renal stone. 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 No new suspicious bone lesions. Bilateral femoral screw fixation. This examination was performed in conjunction with a CT of the chest, which will be reported separately. Procedure Note Nish Solomon M.B.BZenaS. - 01/31/2025 EXAM: CT ABDOMEN PELVIS WITH IV CONTRAST COMPARISON: CT 10/28/2024 FINDINGS: No definite liver metastases. Subcapsular focal fat infiltration in theleft lobe (3/25). Negative adrenals. No lymphadenopathy. Nondilated small bowel. Colonic diverticulosis. No ascites or peritoneallesions. Upper abdominal collaterals. Tiny nonobstructing left renalstone. 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 No newsuspicious bone lesions. Bilateral femoral screw fixation. This examination was performed in conjunction with a CT of the chest,which will be reported separately. IMPRESSION: Stable exam. No new or increasing metastatic disease in abdomen andpelvis. us Jennifer Corcoran APRN, C.N.P., M.S. IMG CT PROCED URES Final Result * CT Chest with IV Contrast (01/31/2025 1:57 PM CDT) Anatomical Region Laterality Modality Chest, Thoracic RST LOS, Tho racic ARZ LOS, Thoracic ARZ LOS, Thoracic FLA LOS N/A Computed Tomography 01/31/2025 1:49 PM CDT Impressions 01/31/2025 3:38 PM CDT 1. New 4 mm left lower lobe lung nodule is indeterminate. 2. Right perihilar soft tissue mass with occlusion of the right lower lobe bronchus and associated postobstructive collapse of the right lower lobe has not appreciably changed. 3. Multiple, additional bilateral lung nodules of varying sizes and densities scattered throughout both lungs are stable. Narrative 01/31/2025 3:38 PM CDT EXAM: CT CHEST WITH IV CONTRAST COMPARISON: 10/28/2024, 07/20/2024 FINDINGS: Devices: Tunneled right internal jugular central venous catheter tip is at the superior cavoatrial junction and port is in the upper anterior right chest wall. Lungs and Airways: Right perihilar soft tissue mass with occlusion of the right lower lobe bronchus and associated postobstructive collapse of the right lower lobe has not appreciably changed since 10/28/2024. There is stable endobronchial plugging within the right lower lobe airways and heterogeneous enhancement of the collapsed right lower lobe. Mild subpleural reticulation in both lower lungs has not changed. 4 mm solid, noncalcified nodule in the subpleural posterior basal left lower lobe (series 3, image 437) is new. Multiple, additional bilateral lung nodules of varying sizes and densities scattered throughout both lungs are stable. The largest measure 8 mm: * 8 mm, subsolid, anterior right upper lobe (series 3, image 248). * 8 mm, subsolid, lateral right middle lobe (series 3, image 285). Pleural Space: Small right pleural effusion has not changed. Trace left pleural effusion is new. Cardiovascular: Heart size is normal by visual estimate. Small pericardial effusion. Moderate coronary artery calcification. Scattered atherosclerotic plaque in the aorta and proximal arch vessels. Mild aortic valve leaflet calcifications. Mediastinum and Melani: No enlarged mediastinal or hilar lymph nodes. Calcified lymph nodes and lung nodules are compatible with prior granulomatous disease. Small hiatal hernia. Chest Wall and Osseous Structures: No enlarged axillary lymph nodes. No aggressive bone lesions. Osseous bridging of the anterior left first and second ribs. This examination was performed in conjunction with a CT of the abdomen and pelvis, which will be reported separately. 3D maximum intensity projection (MIP) images were created on a dependent workstation as ordered by the treating provider and reviewed by the radiologist to increase sensitivity for detection of pulmonary nodules. Procedure Note Juan Jose Cisneros M.D. - 01/31/2025 EXAM: CT CHEST WITH IV CONTRAST COMPARISON: 10/28/2024, 07/20/2024 FINDINGS: Devices: Tunneled right internal jugular central venous catheter tip is atthe superior cavoatrial junction and port is in the upper anterior rightchest wall. Lungs and Airways: Right perihilar soft tissue mass with occlusion of theright lower lobe bronchus and associated postobstructive collapse of theright lower lobe has not appreciably changed since 10/28/2024. There isstable endobronchial plugging within the right lower lobe airways and heterogeneous enhancement of thecollapsed right lower lobe. Mild subpleural reticulation in both lowerlungs has not changed. 4 mm solid, noncalcified nodule in the subpleural posterior basal leftlower lobe (series 3, image 437) is new. Multiple, additional bilateral lung nodules of varying sizes and densitiesscattered throughout both lungs are stable. The largest measure 8 mm: * 8 mm, subsolid, anterior right upper lobe (series 3, image 248). * 8 mm, subsolid, lateral right middle lobe (series 3, image 285). Pleural Space: Small right pleural effusion has not changed. Trace leftpleural effusion is new. Cardiovascular: Heart size is normal by visual estimate. Small pericardialeffusion. Moderate coronary artery calcification. Scatteredatherosclerotic plaque in the aorta and proximal arch vessels. Mild aorticvalve leaflet calcifications. Mediastinum and Melani: No enlarged mediastinal or hilar lymph nodes.Calcified lymph nodes and lung nodules are compatible with priorgranulomatous disease. Small hiatal hernia. Chest Wall and Osseous Structures: No enlarged axillary lymph nodes. Noaggressive bone lesions. Osseous bridging of the anterior left first andsecond ribs. This examination was performed in conjunction with a CT of the abdomen andpelvis, which will be reported separately. 3D maximum intensity projection (MIP) images were created on a dependentworkstation as ordered by the treating provider and reviewed by theradiologist to increase sensitivity for detection of pulmonary nodules. IMPRESSION: 1. New 4 mm left lower lobe lung nodule is indeterminate. 2. Right perihilar soft tissue mass with occlusion of the right lowerlobe bronchus and associated postobstructive collapse of the right lowerlobe has not appreciably changed. 3. Multiple, additional bilateral lung nodules of varying sizes anddensities scattered throughout both lungs are stable. Jennifer Corcoran APRN CZenaN.P., M.S. 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 Given 01/31/2025 1:51 PM CDT 500 Units iohexoL 300 mg iodine/mL solution 1-200 mL (Omnipaque) 1-200 mL, intravenous, Once in imaging, contrast, Starting on Stormy 01/31/25 at 1326, For 1 dose, Imaging Protocol Orders, Dose per Radiant Medication Guidelines Given 01/31/2025 1:40 PM CDT 140 mL sodium chloride (PF) 0.9 % injection 1-100 mL 1-100 mL, intravenous, Once, On Stormy 01/31/25 at 1345, For 1 dose, Imaging Protocol Orders, Dose per Radiant Medication Guidelines Given 01/31/2025 1:40 PM CDT 50 mL sodium chloride 0.9 % injection 10-20 mL 10-20 mL, intravenous, During hospitalization, line care, Prior to discharge, Starting on Stormy 01/31/25 at 1332, For 1 dose, Implanted Vascular Access Device (IVAD) Venous Non-Valved: Flush 10 mL per port/lumen followed by heparin flush prior to discharge. Given 01/31/2025 1:51 PM CDT 10 mL documented in this encounter Additional Health Concerns Infection Onset Date Last Indicated Resolved Time Protective Environment 11/08/2024 11/08/2024 documented as of this encounter Care Teams Home Stager Relationship Specialty Start Date End Date Elsewhere, Pcp PCP - General Family Medicine 01/21/21 documented as of this encounter
--- OUTSIDE RECORDS SUMMARY | 2025-01-31 14:04 | XMS_ITS | Encounter Summary ---
Author Organization 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 [address] [place] [address] Phone: tel: fax: [facility] Referral ID Status Reason Start Date Expiration Date Visits Re quested Visits Authorized [id number] Closed 10/29/2024 01/29/2026 1 1 Encounter Details Date Type Department Care Team (Latest Contact Info) Description 01/31/2025 2:04 PM CDT - 01/31/2025 11:59 PM CDT Hospital Encounter Department of Radiology, [facility] in [place], [place] [address] [place] [address] Jennifer Corcoran APRN, C.N.Carli., M.S. [address] [place] [address] Malignant Neoplasm Of Lung Lower Lobe Or [...] = 0.6 oz pur e alcohol) socially [facility] Utilities Answer Date Recorded In the past 12 months has [facility] [employer], gas, oil, or water [employer] threatened to shut off services in [...] your living situation today? I have a [facility] place to live 03/12/2024 Education Answer Date Recorded What is the highest level of school you have completed or the highest degree you have received? Some college, no degree 01/10/2019 Comments No Sex and Gender Information Value Date Recorded Sex Assigned at Female 05/12/2021 8:37 PM LAWN SPECIALIST Legal Sex Female 11:57 AM LAWN SPECIALIST Gender Identity Female 01/02/2019 1:16 PM CDT Sexual Orientation Straight 05/12/2021 8: 37 PM LAWN SPECIALIST documented as of this encounter Medications at [...] PM CDT Clinical Communication Virtual Review in [address] [phone] 02/27/2025 8:15 AM CDT Lab Department of Oncology in [address] [phone] Jennifer Corcoran APRN, C.N.P., M.S. [address] [place] [phone] 02/27/2025 10:20 AM CDT Office Visit Department of Oncology in [address] [phone] Jennifer Corcoran APRN, C.N.P., M.S. [address] [place] [phone] 02/27/2025 1:30 PM CDT Infusion Department of Oncology in [address] [phone] Jennifer Corcoran APRN, C.N.P., M.S. [address] [place] [phone] 03/25/2025 1:00 PM CDT Clinical Communication Virtual Review in [address] [phone] 03/27/2025 7:00 AM CDT Lab Department of Oncology in [address] [phone] Jennifer Corcoran APRN, C.N.P., M.S. [address] [place] [phone] 03/27/2025 9:00 AM CDT Office Visit Department of Oncology in [place], [place] [address] [place] [phone] Jennifer Corcoran APRN, Coretta.N.P., M.S. [address] [place] [phone] 03/27/2025 10:00 AM CDT Infusion Department of Oncology in [place], [place] [address] [place] [phone] Jennifer Corcoran APRN, Coretta.N.P., M.S. [address] [place] [phone] 03/28/2025 1:00 PM CDT Procedure visit Department of Orthopedic Surgery in [address] [phone] Danika Navarro APRN, C.N.P., D.N.P. [address] [place] [phone] 04/22/2025 12:45 PM LAWN SPECIALIST Clinical Communication Virtual Review in [place], [place] 200 [place] [address] 04/24/2025 7:30 AM LAWN SPECIALIST Lab Department of Oncology in [address] [address] Joshua Fraga M.D. [address] [place] [phone] 04/24/2025 9:40 AM LAWN SPECIALIST Office Visit Department of Oncology in [address] [phone] Joshua Fraga M.D. [address] [place] [phone] 04/24/2025 11:00 AM LAWN SPECIALIST Infusion Department of Oncology in [place], [place] [address] [place] [phone] Joshua Fraga M.D. 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 N/A Magnetic Resonance Impressions 01/31/2025 7:21 PM CDT 1. No findings to suggest progression of cerebral metastatic disease. Narrative 01/31/2025 7:21 PM CDT EXAM: MR BRAIN WITHOUT AND WITH IV CONTRAST COMPARISON: Brain MRIs 10/28/2024, 07/20/2024, 04/23/2024, and 01/10/2019. BRIEF HISTORY: 6 brain metastases from lung carcinoma were treated with gamma knife therapy on 01/16/2019. FINDINGS: Small residual nodular foci of enhancement and local encephalomalacia at the site of two treated right cerebellar metastases (13:58-59) are unchanged since 10/28/2024. Irregular enhancement at the site of a treated vermian metastasis (13:62) is stable. Focal encephalomalacia and T2 signal hyperintensity without enhancement along the body of the right lateral ventricle at the site of a treated metastasis (13:105) are unchanged. Barely perceptible, subtle punctate enhancement along the posteromedial left parietal lobe at the site of a treated metastasis (13:117) is unchanged. A small zone of encephalomalacia with subtle enhancement involving the anterior aspect of the right middle frontal gyrus in association with a treated metastasis (13:98-102) is unchanged. No evidence of new cerebral metastases. A few scattered tiny nonenhancing foci of T2 signal hyperintensity within the hemispheric white matter appear similar to earlier studies and may represent treatment-related changes and/or mild leukoaraiosis. Mild generalized age- related cerebral volume loss. The brain is otherwise normal without evidence of diffusion restriction. Normal flow voids are present within the intracranial vessels. No evidence of osseous calvarial metastatic disease. Numerous small mucous retention cysts are present within both maxillary sinuses. Moderate to severe ethmoid sinus mucosal thickening. Small amount of fluid within the mastoid air cells bilaterally. Mild to moderate atlantoaxial degenerative changes. Procedure Note Brown Sanders M.D. - 01/31/2025 EXAM: MR BRAIN WITHOUT AND WITH IV CONTRAST COMPARISON: Brain MRIs 10/28/2024, 07/20/2024, 04/23/2024, and 01/10/2019. BRIEF HISTORY: 6 brain metastases from lung carcinoma were treated withgamma knife therapy on 01/16/2019. FINDINGS: Small residual nodular foci of enhancement and local encephalomalacia atthe site of two treated right cerebellar metastases (13:58-59) areunchanged since 10/28/2024. Irregular enhancement at the site of a treated vermian metastasis (13:62)is stable. Focal encephalomalacia and T2 signal hyperintensity without enhancementalong the body of the right lateral ventricle at the site of a treatedmetastasis (13:105) are unchanged. Barely perceptible, subtle punctate enhancement along the posteromedialleft parietal lobe at the site of a treated metastasis (13:117) isunchanged. A small zone of encephalomalacia with subtle enhancement involving theanterior aspect of the right middle frontal gyrus in association with atreated metastasis (13:98-102) is unchanged. No evidence of new cerebral metastases. A few scattered tiny nonenhancing foci of T2 signal hyperintensity withinthe hemispheric white matter appear similar to earlier studies and mayrepresent treatment-related changes and/or mild leukoaraiosis. Mildgeneralized age-related cerebral volume loss. The brain is otherwise normal without evidence of diffusion restriction.Normal flow voids are present within the intracranial vessels. No evidence of osseous calvarial metastatic disease. Numerous small mucous retention cysts are present within both maxillarysinuses. Moderate to severe ethmoid sinus mucosal thickening. Small amountof fluid within the mastoid air cells bilaterally. Mild to moderate atlantoaxial degenerative changes. IMPRESSION: 1. No findings to suggest progression of cerebral metastatic disease. Jennifer Corcoran APRN, C.N.P., M.S. 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 Given 01/31/2025 3:41 PM CDT 8 mL heparin flush 500-1,000 Units 500-1,000 Units, intra-catheter, During hospitalization, line care, Prior to discharge, Starting on Stormy 01/31/25 at 1427, For 1 dose, Implanted Vascular Access Device (IVAD) Venous Non-Valved: flush 5 mL (500 units) per port/lumen following saline flush prior to discharge. Given 01/31/2025 3:52 PM CDT 500 Units sodium chloride 0.9 % injection 10-20 mL 10-20 mL, intravenous, During hospitalization, line care, Prior to discharge, Starting on Stormy 01/31/25 at 1427, For 1 dose, Implanted Vascular Access Device (IVAD) Venous Non-Valved: Flush 10 mL per port/lumen followed by heparin flush prior to discharge. Given 01/31/2025 3:52 PM CDT 10 mL documented in this encounter Additional Health Concerns Infection Onset Date Last Indicated Resolved Time Protective Environment 11/08/2024 11/08/2024 documented as of this encounter Care Teams Deputy Clerk Of Superior Court Relationship Specialty Start Date End Date Elsewhere, Pcp PCP - General Family Medicine 01/21/21 documented as of this encounter
--- OUTSIDE RECORDS SUMMARY | 2025-02-01 09:00 | XMS_ITS | Encounter Summary ---
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 [address] [place] [address] Phone: tel: fax: [facility] Referral ID Status Reason Start Date Expiration Date Visits Re quested Visits Authorized Scheduling Instructions Dr. Fraga is primary oncologist. 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 [address] [place] [address] Phone: tel: fax: [facility] Referral ID Status Reason Start Date Expiration Date Visits Re quested Visits Authorized Scheduling Instructions Dr. Fraga is primary oncologist. 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 [address] [place] [address] Phone: tel: fax: Department of Oncology in [place], [place] [address] [place] [address] Phone: tel: Referral ID Status Reason Start Date Expiration Date V isits Requested Visits Authorized [id number] Pending Review 06/04/2024 16 99 Encounter Details Date Type Department Care Team (Latest Contact Info) Description 02/01/2025 9:00 AM CDT Office Visit Department of Oncology in [place], [place] [address] [place] [phone] Joshua Fraga M.D. 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) (Primary Dx); Encounter For Antineoplastic Chemotherapy; Other Cotton Stomper Current Drug Therapy Social History Tobacco Use Types Packs/Day Years Used Date Smoking Tobacco: Never Passive Smoke Exposure: Past Smokeless Tobacco: Never Comments:Nonsmoker occasiona l/social in my 20s Passive Exposure Comments:My Dad Alcohol Use Standard Drinks/Week Comments Yes 3 (1 standard drink = 0.6 oz pur e alcohol) socially [facility] Utilities Answer Date Recorded In the past 12 months has [employer], gas, oil, or water [employer] threatened to shut off services in your [...] your living situation today? I have a [facility] place to live 03/12/2024 Education Answer Date Recorded What is the highest level of school you have completed or the highest degree you have received? Some college, no degree 01/10/2019 Comments No Sex and Gender Information Value Date Recorded Sex Assigned at Female 05/12/2021 8:37 PM STRATEGIC SOLUTIONS CONSULTANT Legal Sex Female 11:57 AM STRATEGIC SOLUTIONS CONSULTANT Gender Identity Female 01/02/2019 1:16 PM CDT Sexual Orientation Straight 05/12/2021 8: 37 PM STRATEGIC SOLUTIONS CONSULTANT documented as of this encounter Last Filed Vital Signs Vital Sign Reading Time Taken Comments Blood Pressure 115/77 02/01/2025 8:56 AM CDT Pulse 70 02/01/2025 8:56 AM CDT Temperature 36.6 C (97.9 F) 02/01/2025 8:56 AM CDT Respiratory Rate 17 02/01/2025 8:56 AM CDT Oxygen Saturation 98% 02/01/2025 8:56 AM CDT Inhaled Oxygen Concentration - - Weight 80.3 kg (177 lb 0.5 oz) 02/01/2025 8:56 A M CDT Height 168.4 cm (5' 6.3) 02/01/2025 8:56 AM CDT Body Mass Index 28.32 02/01/2025 8:56 AM CDT documented in this encounter Progress Notes * Joshua Fraga M.D. - 02/01/2025 9:00 AM CDT SUBJECTIVE PRIMARY CARE PHYSICIAN ELSEWHERE, PCP LOCAL ONCOLOGIST No care state farm agent team member to display PRIMARY [place] ONCOLOGIST Jennifer Corcoran APRN, C.N.P., M.S. Joshua Fraga M.D. CHIEF COMPLAINT / REASON FOR VISIT Kayley Gandhi is a 69 y.o. female who presents for evaluation of EGFR mutated lung cancer. HISTORY OF PRESENT ILLNESS Oncology History Oncology History Secondary Malignant Neoplasm Bone (HCC) 10/2018 Other Presented with hip pain which limited ambulation. MRI showed bilateral intertrochanteric femur lesions in addition to a left sacral lesion, no history of malignancy. CT showed multiple pulmonary nodules concerning for malignancy. 12/25/2018 Surgery and Procedures Prophylactic stabilization left femur (pathologic fracture), and biopsy. Metastatic adenocarcinoma.EGFR [id number]. 12/27/2018 Surgery and Procedures Fixation, prophylactic nails, [...] (Target Dose Not Tolerated) Start Date: 02/28/2024 Interval history: Sapphire reports stable fatigue with pemetrexed/amivantamab despite having this every4 weeks. She continues to have bilateral lower extremity swelling. She has decreased the magnesium supplement because of loose stools. REVIEW OF SYSTEMS As in interval history. OBJECTIVE BP 115/77 (BP Location: Right arm, Patient Position: Sitting, Cuff Size: Regular) Pulse 70 Temp36.6 ??C (Temporal) Resp 17 Ht 168.4 cm Wt 80.3 kg SpO2 98% BMI 28.32 kg/m?? PHYSICAL EXAM Constitutional Appearance: Normal appearance. HENT Head: Normocephalic and atraumatic. Musculoskeletal Right lower leg: Edema present. Left lower leg: Edema present. Comments: Mild erythema in the right big toe. Neurological Mental Status: She is alert. LABORATORY DATA Lab data reviewed. RADIOLOGICAL DATA Radiology data reviewed. 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 She has received SRS to brain metastases, front line osimertinib, radiation therapy to the primary lung mass and is currently on 2nd line therapy with pemetrexed and amivantamab following induction with carboplatin, pemetrexed and amivantamab. Amivantamab was not escalated beyond 1750 mg every 3 weeks and in recent cycles she has received 700 mg because of side effects. Treatment schedule has been changed to every 4 weeks in August 2024 because of fatigue. At this point we reviewed restaging imaging including CTs of the chest, abdomen and pelvis and MRI brain and there is no evidence of disease progression. There is a new indeterminate nodule in the left lower lobe that we will follow. We will proceed with pemetrexed with dose reduction to 250 mg/m2 and keep the same dose of amivantamab every 4 weeks to address fatigue. Change magnesium supplement to slow mag to address loose stool and hypomagnesemia. Dose converted to correlate with 3 magnesium oxide tablets daily. She has difficulty to obtain the chlorhexidine for toe soaks. I encouraged her to use white vinegar1:1 with water instead. She continues on doxycycline. She continues olanzapine, aprepitant and prn ondansetron for nausea. Continues with ketoconazole shampoo. PATIENT EDUCATION Ready to learn, no apparent learning barriers were identified; learning preferences include listening. Explained diagnosis and treatment plan; patient expressed understanding of the content. ADMINISTRATIVE BILLING I spent 40 minutes face to face and non-face to face caring for the patient today. documented in this encounter Plan of Treatment Upcoming Encounters Date Type Department Care Team (Latest Contact Info) Description 02/25/2025 4:15 PM CDT Clinical Communication Virtual Review in [place], [place] [address] [place] [phone] 02/27/2025 8:15 AM CDT Lab Department of Oncology in [place], [place] [address] [place] [phone] Jennifer Corcoran APRN, C.N.P., M.S. [address] [place] [phone] 02/27/2025 10:20 AM CDT Office Visit Department of Oncology in [address] [phone] Jennifer Corcoran APRN, C.N.P., M.S. [address] [place] [phone] 02/27/2025 1:30 PM CDT Infusion Department of Oncology in [place], [place] [address] [place] [phone] Jennifer Corcoran APRN, C.N.P., M.S. [address] [place] [phone] 03/25/2025 1:00 PM CDT Clinical Communication Virtual Review in [place], [place] [address] [place] [address] 03/27/2025 7:00 AM CDT Lab Department of Oncology in [address] [phone] Jennifer Corcoran APRN, C.N.P., M.S. [address] [place] [phone] 03/27/2025 9:00 AM CDT Office Visit Department of Oncology in [place], [place] [address] [place] [phone] Jennifer Corcoran APRN, C.N.P., M.S. [address] [place] [phone] 03/27/2025 10:00 AM CDT Infusion Department of Oncology in [place], [place] [address] [place] [phone] Jennifer Corcoran APRN, C.N.P., M.S. [address] [place] [phone] 03/28/2025 1:00 PM CDT Procedure visit Department of Orthopedic Surgery in [address] [phone] Danika Navarro APRN, C.NLester, D.N.P. [address] [place] [phone] 04/22/2025 12:45 PM STRATEGIC SOLUTIONS CONSULTANT Clinical Communication Virtual Review in [place], [place] [address] [place] [address] 04/24/2025 7:30 AM STRATEGIC SOLUTIONS CONSULTANT Lab Department of Oncology in [address] [phone] Joshua Fraga M.D. [address] [place] [phone] 04/24/2025 9:40 AM STRATEGIC SOLUTIONS CONSULTANT Office Visit Department of Oncology in [address] [phone] Joshua Fraga M.D. [address] [place] [phone] 04/24/2025 11:00 AM STRATEGIC SOLUTIONS CONSULTANT Infusion Department of Oncology in [address] [phone] Joshua Fraga M.D. 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) Encounter For Antineoplastic Chemotherapy Other Cotton Stomper Current Drug Therapy Expected: 04/22/2025, Expires: 04/21/2028 Comprehensive Metabolic Panel Lab Routine 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) Encounter For Antineoplastic Chemotherapy Other [facility] Current Drug Therapy Expected: 04/22/2025, Expires: 04/22/2026 Magnesium Lab Routine 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) Encounter For Antineoplastic Chemotherapy Other [facility] Current Drug Therapy Expected: 05/20/2025, Expires: 05/20/2026 CBC with Differential, Blood Lab Routine 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) Encounter For Antineoplastic Chemotherapy Other Cotton Stomper Current Drug Therapy Expected: 05/20/2025, Expires: 05/19/2028 Comprehensive Metabolic Panel Lab Routine 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) Encounter For Antineoplastic Chemotherapy Other Cotton Stomper Current Drug Therapy Expected: 05/20/2025, Expires: 05/20/2026 Scheduled Referrals Name Type Priority Associated Diagnoses Orde r Schedule Oncology office visit (clinic) Outpatient Referral Routine 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) Encounter For Antineoplastic Chemotherapy Other Cotton Stomper Current Drug Therapy Expected: 04/22/2025, Expires: 04/22/2026 Oncology office visit (clinic) Outpatient Referral Routine 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) Encounter For Antineoplastic Chemotherapy Other [facility] Current Drug Therapy Expected: 05/20/2025, Expires: 05/20/2026 documented as of this encounter Visit Diagnoses Diagnosis 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
--- OUTSIDE RECORDS SUMMARY | 2025-02-01 10:00 | XMS_ITS | Encounter Summary ---
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 [address] [place] [address] Phone: tel: fax: Department of Oncology in [place], [place] [address] [place] [address] Phone: tel: Referral ID Status Reason Start Date Expiration Date V isits Requested Visits Authorized [id number] Pending Review 06/04/2024 16 99 Encounter Details Date Type Department Care Team (Late st Contact Info) Description 02/01/2025 10:00 AM CDT Infusion Department of Oncology in [place], [place] [address] [place] [address] Jennifer Corcoran APRN, C.N.P., M.S. 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 Answer Date Recorded In the past 12 months has e [employer], gas, oil, or water [employer] threatened to shut off services in your [...] your living situation today? I have a [facility] place to live 03/12/2024 Education Answer Date Recorded What is the highest level of school you have completed or the highest degree you have received? Some college, no degree 01/10/2019 Comments No Sex and Gender Information Value Date Recorded Sex Assigned at Female 05/12/2021 8:37 PM MANAGER RESORT Legal Sex Female 11:57 AM MANAGER RESORT Gender Identity Female 01/02/2019 1:16 PM CDT Sexual Orientation Straight 05/12/2021 8: 37 PM MANAGER RESORT documented as of this encounter Plan of Treatment Upcoming Encounters Date Type Department Care Team (Latest Contact Info) Description 02/25/2025 4:15 PM CDT Clinical Communication Virtual Review in [place], [place] [address] [place] [address] 02/27/2025 8:15 AM CDT Lab Department of Oncology in [address] [phone] Jennifer Corcoran APRN, C.N.P., M.S. [address] [place] [phone] 02/27/2025 10:20 AM CDT Office Visit Department of Oncology in [address] [phone] Jennifer Corcoran APRN, C.N.P., M.S. [address] [place] [phone] 02/27/2025 1:30 PM CDT Infusion Department of Oncology in [address] [phone] Jennifer Corcoran APRN, C.N.P., M.S. [address] [place] [phone] 03/25/2025 1:00 PM CDT Clinical Communication Virtual Review in [place], [place] [address] [place] [address] 03/27/2025 7:00 AM CDT Lab Department of Oncology in [place], [place] [address] [place] [phone] Jennifer Corcoran APRN, C.N.P., M.S. [address] [place] [phone] 03/27/2025 9:00 AM CDT Office Visit Department of Oncology in [place], [place] [address] [place] [phone] Jennifer Corcoran APRN, C.N.P., M.S. [address] [place] [phone] 03/27/2025 10:00 AM CDT Infusion Department of Oncology in [place], [place] [address] [place] [phone] Jennifer Corcoran APRN, C.N.P., M.S. [address] [place] [phone] 03/28/2025 1:00 PM CDT Procedure visit Department of Orthopedic Surgery in [address] [phone] Danika Navraro APRN, C.N.P., D.N.P. [address] [place] [phone] 04/22/2025 12:45 PM MANAGER RESORT Clinical Communication Virtual Review in [place], [place] [address] [place] [address] 04/24/2025 7:30 AM MANAGER RESORT Lab Department of Oncology in [address] [phone] Joshua Fraga M.D. [address] [place] [phone] 04/24/2025 9:40 AM MANAGER RESORT Office Visit Department of Oncology in [place], [place] [address] [place] [address] Joshua Fraga M.D. [address] [place] [phone] 04/24/2025 11:00 AM MANAGER RESORT Infusion Department of Oncology in [place], [place] [address] [place] [address] Joshua Fraga M.D. 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 documented in this encounter Administered Medications Inactive Administered Medications - up to 3 most recent administrations Medication Order MAR Action Action Date Dose Rate Site acetaminophen tablet 650 mg (TylenoL) 650 mg, oral, Once, On Tue02/01/25 at 1045, For 1 dose, Administer 30 to 60 minutes prior to amivantamab-vmjw.Indications: Encounter For Antineoplastic Chemotherapy,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),Other Assisted Current Drug Therapy Given 02/01/2025 10:26 AM CDT 650 mg amivantamab-vmjw 700 mg in NaCl 0.9% 250 mL IVPB (Rybrevant) 700 mg, intravenous, at 125 mL/hr, Administer over 2 Hours, Once, On Tue02/01/25 at 1115, For 1 dose, Administer immediately after completing [...] Lung Lower Lobe Or Bronchus Right (HCC),Other Assisted Current Drug Therapy New Bag 02/01/2025 11:35 AM CDT 700 mg 125 mL/hr diphenhydrAMINE injection 25 mg (BenadryL) 25 mg, intravenous, Once, On Tue02/01/25 at 1045, For 1 dose, Administer 15 to 30 minutes prior to amivantamab-vmjw.Indications: Encounter For Antineoplastic Chemotherapy,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 5 mL (500 units) of Heparin 100 units/mL to each port/lumen. When IVAD not accessed or infusing: When no infusion to maintain patency flush every 28 days following NaCL flush. 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 Given 02/01/2025 10:27 AM CDT 8 mg PEMEtrexed disodium 500 mg in NaCl 0.9% 130 mL IVPB (Alimta) 500 mg (rounded from 475 mg = 250 mg/m2 1.9 m2 Treatment Plan BSA from Measured weight), intravenous, at 780 mL/hr, Administer over 10 Minutes, Once, On Tue02/01/25 at 1045, For 1 doseIndications:Encounter For Antineoplastic Chemotherapy,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 10 mL to each port/lumen.Indications:Malign ant 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 (HCC) Given 02/01/2025 1:48 PM CDT 10 mL Given 02/01/2025 11:28 AM CDT 20 mL Given 02/01/2025 10:26 AM CDT 10 mL documented in this encounter Additional Health Concerns Infection Onset Date Last Indicated Resolved Time Protective Environment 11/08/2024 11/08/2024 documented as of this encounter Care Teams Still Pump Operator Relationship Specialty Start Date End Date Elsewhere, Pcp PCP - General Family Medicine 01/21/21 documented as of this encounter
--- OUTSIDE RECORDS SUMMARY | 2025-02-07 20:03 | XMS_ITS | Clinical Summary ---
Author Organization [facility] Address [address] [place] [address] Care Team Providers [employer] Name Role Phone Elsewhere, Pcp Primary Care Provider Unavailabl e Source Comments Patient records contain information from all sites at [facility]. For routine questions regarding patient records, call [phone] during business hours, M-F 8:00 AM - 5:00 PM Central Time. Record requests for emergency care only can be directed to [phone] at any time.[facility] Allergies Active Allergy Reactions Criticality Noted Date Comments Chlorhexidin-Isopropyl Alcohol Itching 11/10/2023 Fosaprepitant Other (see comments) 09/19/2023 Infusion reaction to IV fosaprepitant (palpitations). Oral Emend (aprepitant) okay to take. Medications * This document contains information received from the source organization and may not represent a complete record from that organization. rizatriptan (MAXALT) 10 mg tablet Take 1 tablet by mouth once as needed for migraine. 019 Active omeprazole (PriLOSEC) [address] capsule Take 40 mg by mouth every morning before breakfast. 023 Active sodium bicarbonate 0.18 mEq/mL (1.5 %) oral solution (rinse) Swish and spit 10 mL 4 (four) times a day after meals and bedtime. 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 TAKE WITH FOOD THE DAY BEFORE, DAY OF, AND DAY AFTER PEMETREXED. 6 tablet 3 024 Active clobetasoL (Temovate) 0.05 % ointment Apply 1 Application topically 2 (two) times a day. Apply to affected area. 30 g 2 024 Active Additional Information Patient taking differently:1 Application topical2 times daily PRN, Apply to affected area., Informant: Self, Reported on 12/31/2024 hydrocortisone 1 % cream Apply 1 Application topically 2 (two) times a day. Apply topically 2 (two) times a day 2 weeks on / 1 week off. Apply thin layer to face twice daily for prevention/treat of rash. 024 Active peg 400-propylene glycol (Systane) 0.4-0.3 % ophthalmic solution Administer 1 drop into both eyes 3 (three) times a day. Once or twice weekly Active miconazole 2 % cream Apply 1 Application topically 2 (two) times a day. Apply to the vulva twice a day for 14 days. 28.35 g 1 024 Active clindamycin (Cleocin T) 1 % gelIndications:Ma lignant Neoplasm Of Bronchus And Lung Right (HCC) APPLY 1 APPLICATION TOPICALLY DIRECTED. IF RASH PRESENTS, APPLY TO SKIN TWICE DAILY. SEPARATE FROM OTHER CREAMS BY 10 MINUTES. 60 g 024 Active magnesium oxide (Mag-Ox) 400 mg (241.3 mg magnesium) tablet TAKE ONE TABLET BY MOUTH THREE TIMES DAILY BEFORE MEALS. CONTACT ONCOLOGY TEAM IF YOU DEVELOP DIARRHEA 120 tablet 3 025 Active folic acid 1 mg tablet TAKE 1 TABLET (1 MG TOTAL) BY MOUTH DAILY. 90 tablet 2 025 Active cannabidiol, CBD, (CANNABIDIOL ORAL) Take 5 mg by mouth at bedtime as needed (Sleep / insomnia). 4 nights per week. Active ketoconazole (Nizoral) 2 % shampoo APPLY TO DAMP SKIN, LATHER, LEAVE ON 5 MINUTES, AND RINSE. USE TWICE WEEKLY FOR FIRST MONTH OF AMIVANTANAB, THEN ONCE TO TWICE WEEKLY NEEDED 120 mL 2 5 3:30 PM CDT Active mupirocin (Bactroban) 2 % ointment Apply 1 Application topically 3 (three) times a day. Apply to great toes. 22 g 1 5 2:38 PM CDT Active Additional Information Patient taking differently:1 Application topical3 times daily PRN, Apply to great toes., Informant: Self, Reported on 12/31/2024 ondansetron ODT (Zofran-ODT) 4 mg disintegrating tablet Dissolve 1 tablet (4 mg total) in the mouth daily. 30 tablet 1 5 12:15 PM CDT Active prochlorperazine (Compazine) 10 mg tablet Take 1 tablet (10 mg total) by mouth daily as needed for nausea or vomiting. If nausea persists despite use of ondansetron. Active sennosides (senna) 8.6 mg tablet Take 1-2 tablets (8.6-17.2 mg total) by mouth at bedtime as needed for constipation (Constipation despite use of oral magnesium). May increase as needed to 2 tablets at night or one twice daily Active meclizine (Antivert) 25 mg chewable tablet Chew 1 tablet (25 mg total) 3 (three) times a day as needed for movement disorders. Administer first dose 30 to 60 minutes prior to exposure Active docusate sodium (Colace) 50 mg capsule Take 1-2 capsules (50-100 mg total) by mouth 2 (two) times a day as needed for constipation. Unsure of strength of product at home. Active aprepitant (Emend) 125 mg (1)- 80 mg (2) kitIndications:pr evention of chemotherapy-garcia kacy nausea and vomiting Indications: prevent nausea and vomiting from cancer chemotherapy. Take as directed. Take 125 mg 1 hour prior to chemotherapy on day 1, followed by 80 mg once daily on days 2 and 3 each cycle. 1 kit 5 025 Active chlorhexidine (Hibiclens) 4 % external solution Apply 1 Application topically as directed. Chlorhexidine soak 1:1 with warm water (10-15 minutes) 2 to 3 times daily. 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 Days 1 through 4 of each cycle. May take longer if needed. 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 Do not crush or chew. 180 tablet 025 Active DME Gradient compression garments & suppliesIndicatio ns: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),Edema DME Order 1 Unspecified 024 2024 [facility]) Hospital, Clinic, or Other Facility Administered Medication Ordered Dose Route Frequency Start Date End Date Status alteplase 1 mg/mL injection 2 mg (Cathflo Activase)Indications:Malignan t 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 (HCC) 2 mg cath As needed 02/28/2024 A ctive Active Problems Problem Noted Date Diagnosed Date Encounter For Antineoplastic Chemotherapy 2023 Other Res Habilitation Assistant Current Drug Therapy 10/10/2023 Malignant Neoplasm Of Lung Lower Lobe Or Bronchu s Right 01/15/2019 Cancer Staging:Clinical stage from 01/31/2019:Stage IVB(cT3, cN0, cM1c) - Unsigned Overview (07/11/2020): 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 EGFR exon 19 deletion s/p gamma knife and L femur irradiation. On osimertinib 80mg daily since 01/2019. 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 Patient feeling better than she has in some time, no current side-effects noted. Will check [address] chest/abdomen with contrast, MR brain, CMP, and CBC with return visit. Sending osimertinib refill as patient is on last bottle. 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 Post Operative Nausea/Vomiting Migraine Headache Overview (12/22/2018): On DC tracks. Last dose was in September with her last migraine. She has max out prescribed however she has not taken any. Apnea Sleep Obstructive Gastroesophageal Reflux Disease NOS Encounters Date Type Department Care Team Description 02/07/2025 Clinical Communication Department of Oncology in [place], [place] [address] [place] [phone] Melina Lorenzo M.D. 02/01/2025 10:00 AM CDT Infusion Department of Oncology in [place], [place] [address] [place] [address] Jennifer Corcoran, ROSALIE, C.N.P., M.S. 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 Other Shelter Current Drug Therapy (Primary Dx); Encounter For Antineoplastic Chemotherapy; 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) 01/02/2025 3:40 PM CDT Office Visit Department of Oncology in [place], [place] [address] [place] [phone] Jennifer Corcoran APRN, C.N.P., M.S. 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 Med Refill (OLANZapine) 12/13/2024 Refill Department of Oncology in [address] [phone] Krishna White M.B.BZenaSZena Med Refill (Vibramycin) 12/07/2024 7:00 AM CDT Infusion Department of Oncology in [address] [phone] Jennifer Corcoran APRN, C.N.P., M.S. Other Shelter Current Drug Therapy (Primary Dx); Encounter For Antineoplastic Chemotherapy; 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) 12/06/2024 9:40 AM CDT Office Visit Department of Oncology in [address] [phone] Juwan Cole M.D. Encounter For Antineoplastic Chemotherapy; 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); Other Res Habilitation Assistant Current Drug Therapy 12/06/2024 7:45 AM CDT Lab Department of Oncology in [address] [phone] Jennifer Corcoran APRN, C.N.P., M.S. 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 Potter, Ashley L, Pharm.D., R.Ph., BCOP Libra Stein (Primary Dx) 11/15/2024 Orders Only Department of Oncology in [place], [place] [address] [place] [address] Joshua Fraga M.D. 11/14/2024 8:30 AM CDT Comprehensive Visit Department of Physical Medicine and Rehabilitation in [place], [place] [address] [phone] Gurdeep Ferro M.D. 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 Caridad Thompson, Pharm.D., R.Ph., BCOP Encounter For Antineoplastic Chemotherapy; 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); Other Shelter Current Drug Therapy 11/08/2024 7:00 AM CDT Lab Department of Oncology in [place], [place] [address] [place] [address] Jennifer Corcoran, ROSALIE, C.N.P., M.S. 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) (Primary Dx); Encounter For Antineoplastic Chemotherapy; Other Shelter Current Drug Therapy 11/08/2024 Orders Only Department of Oncology in [place], [place] [address] [place] [address] Caridad Thompson, Pharm.D., R.Ph., BCOP from Last 3 Months Immunizations Immunization Administration Dates Next Due H1N1 All Forms 06/06/2009 HZV (ZOSTAVAX) 03/27/2013 Influenza TIV (IM) 04/03/2010,03/20/2009 Influenza, Injectable, Mdck, Quadrivalent 04/07/2022,02/19/2021 Influenza, Injectable, Quadrivalent 01/29,03/28/2019,02/28/2018,2016,05/06/2016,03/12/2015 Influenza, Quadrivalent, Adj uvanted, Preservative Free 03/15/2023 Influenza, Seasonal, Injectable 06/09/2012,02/23 PCV13 05/08/2019 PCV20 04/06/2023 RZV (SHINGRIX) 12/14/2019,05/08/2019 SARS-COV-2 (COVID-19) - PFIZ ER (Discontinued)(12 years or older) 01/21/2021 SARS-COV-2 (COVID-19) - PFIZ ER TS(Discontinued)(12 years or older) 10/06/2021 Tdap 04/06/2023,03/05/2013,02/07/2007 influenza trivalent high dos e (HD)(PF) 03/26/2024 influenza vaccine quad (FLUZONE/FLUARIX) (6 months and older)(PF) 02/28/2014,03/05/2013 Family History Medical History Relation Name Comments Other cancer Brother Elmer Mary Testicular Diabetes Father Tay Mary Stroke Father Tay Mary Migraines Mother's Sister Alecia Sanna Breast cancer Sister 1 Eugenia Gray Other cancer Sister 2 Caro Fishman Cervical Relation Name Status Comments Brother Elmer Mary Father Tay Mary Mother's Sister Alecia Isidro Sister 1 Eugenia Gray Sister 2 Caromichelle tSephensen Social History Tobacco Use Types Packs/Day Years Used Date Smoking Tobacco: Never Passive Smoke Exposure: Past Smokeless Tobacco: Never Tobacco Cessation:Counseling Given: Not Answered Comments:Nonsmoker occasional/social in my 20s Passive Exposure Comments:My Dad Alcohol Use Standard Drinks/Week Comments Yes 3 (1 standard drink = 0.6 oz pur e alcohol) socially [facility] Utilities Answer Date Recorded In the past 12 months has e [employer], gas, oil, or water [employer] threatened to shut off services in your [...] your living situation today? I have a [facility] place to live 03/12/2024 Education Answer Date Recorded What is the highest level of school you have completed or the highest degree you have received? 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 [address] [place] [phone] 02/27/2025 10:20 AM CDT Office Visit Department of Oncology in [address] [phone] Jennifer Corcoran APRN, C.N.P., M.S. [address] [place] [phone] 02/27/2025 1:30 PM CDT Infusion Department of Oncology in [place], [place] [address] [place] [phone] Jennifer Corcoran APRN, C.N.P., M.S. [address] [place] [phone] 03/25/2025 1:00 PM CDT Clinical Communication Virtual Review in [place], [place] [address] [place] [address] 03/27/2025 7:00 AM CDT Lab Department of Oncology in [place], [place] [address] [place] [phone] Jennifer Corcoran APRN, C.N.P., M.S. [address] [place] [phone] 03/27/2025 9:00 AM CDT Office Visit Department of Oncology in [place], [place] [address] [place] [phone] Jennifer Corcoran APRN, C.N.P., M.S. [address] [place] [phone] 03/27/2025 10:00 AM CDT Infusion Department of Oncology in [address] [address] Jennifer Corcoran APRN, C.N.P., M.S. [address] [place] [phone] 03/28/2025 1:00 PM CDT Procedure visit Department of Orthopedic Surgery in [address] [phone] Danika Navarro APRN, C.N.P., D.N.P. [address] [place] [phone] 04/22/2025 12:45 PM AUTOMATIC COIL MACHINE OPERATOR Clinical Communication Virtual Review in [place], [place] [address] [place] [address] 04/24/2025 7:30 AM AUTOMATIC COIL MACHINE OPERATOR Lab Department of Oncology in [place], [place] [address] [place] [phone] Joshua Fraga M.D. [address] [place] [phone] 04/24/2025 9:40 AM AUTOMATIC COIL MACHINE OPERATOR Office Visit Department of Oncology in [address] [phone] Joshua Fraga M.D. [address] [place] [phone] 04/24/2025 11:00 AM AUTOMATIC COIL MACHINE OPERATOR Infusion Department of Oncology in [place], [place] [address] [place] [phone] Joshua Fraga M.D. [address] [place] [phone] Health Maintenance Due Date Last Done Comments Bone Density Scan (Osteoporosis Screen) 1957 CT Colonography 1955 Cologuard 1955 FIT 1955 Hepatitis C Screening 1955 RSV vaccine - (32-36 weeks) or 60+ years (1 - Risk 60-74 years 1-dose series) 2017 Mammogram 01/10/2019 01/10/2018, 12/28, 12/15/2016 Depression Screening (Annual PHQ-2) 05/30/2024 COVID-19 Vaccine (8 - Pfizer risk 2023- season) 2025 04/20/2024, 03/15/2023, 03/05/2022, Additional history exists Influenza Vaccine (#1) 2025 , 03/15/2023, 04/07/2022, Additional history exists Fasting Glucose for Diabetes Screening 02/01/2028 01/31/2025, 01/02/2025, 12/06/2024, Additional history exists Colonoscopy 05/09/2028 05/09/2018 Colorectal Cancer Screening 05/09/2028 DTaP,Tdap,and Td Vaccines (4 - Td or Tdap) 04/06/2033 04/06/2023, 03/05/2013, 02/07/2007 Zoster Vaccines Completed 12/14/2019, 04/29, 03/27/2013 Pneumococcal vaccine (50+ years) Completed 04/06/2023, 05/08/2019 Fall Risk Screen (Annual) Completed 01/31/2025 HPV Vaccines Aged Out No longer eligi ble based on patient's age to complete this topic IPV Vaccines Aged Out No longer eligi ble based on patient's age to complete this topic Medical Devices Implanted Type Area Computed Tomography Scanner Operator Device Identifier Shelf Expiration Date Model / Serial / Lot Bone Or Tissue Bone or Tissue Right: Toes Nl Fem Tfn Lt 130d [id number] - [id number] Implanted:Qty: 1 on 12/25/2018 by Matthew Alejandro M.D. at [facility] Hardware e.g. pins/screws/ro ds Left: Femur Depuy Synthes 09/26/2028 04.037.06 1S / / [id number] Scrw Tfn [address] 10.5x95 - [id number] Implanted:Qty: 1 on 12/25/2018 by Matthew Alejandro M.D. at [facility] Hardware e.g. pins/screws/ro ds Left: Femur Depuy Synthes 08/27/2028 04.038.19 5S / / [id number] Scrw Nlx St Fthrd Nlck 5.0x42 - [id number] Implanted:Qty: 1 on 12/25/2018 by Matthew Alejandro M.D. at [facility] Hardware e.g. pins/screws/ro ds Left: Femur Depuy Synthes 09/27/2027 04.005.53 2S / / [id number] Scrw Nlx St Fthrd Nlck 5.0x38 - [id number] Implanted:Qty: 1 on 12/25/2018 by Matthew Alejandro M.D. at [facility] Hardware e.g. pins/screws/ro ds Left: Femur Depuy Synthes 10/28/2027 04.005.52 8S / / [id number] Nl Fem Tfn Rt 130d 23f875 - [id number] Implanted:Qty: 1 on 12/27/2018 by Abdirahman Cook M.D. at [facility] Hardware e.g. pins/screws/ro ds Right: Femur Depuy Synthes 09/26/2028 04.037.06 0S / / [id number] Scrw Tfn [address] 10.5x90 - [id number] Implanted:Qty: 1 on 12/27/2018 by Abdirahman Cook M.D. at [facility] Hardware e.g. pins/screws/ro ds Right: Femur Depuy Synthes 08/27/2028 04.038.19 0S / / [id number] Scrw Lck Tabitha Ti T25 5x52 - [id number] Implanted:Qty: 1 on 12/27/2018 by Abdirahman Cook M.D. at [facility] Hardware e.g. pins/screws/ro ds Right: Femur Depuy Synthes 04.005.54 2 / / Scrw Nl St Fthrd Nlck 5.0x56 - [id number] Implanted:Qty: 1 on 12/27/2018 by Abdirahman Cook M.D. at [facility] Hardware e.g. pins/screws/ro ds Right: Femur Depuy Synthes 04.005.54 6 / / Prt Pwr Mri Mctrdcr 8f - [id number] Implanted:Qty: 1 on 09/14/2023 by Juan Jose Lewis M.D. at [facility] Implantable [employer] 01/27/2025 [id number] / / [id number] Procedures Procedure Name Priority Date/Time Associated Diagnosis Comments MR BRAIN WITHOUT AND WITH IV CONTRAST RAD - Routine (most inpatients and all outpatients) 01/31/2025 3:46 PM CDT 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) Secondary Malignant Neoplasm Bone (HCC) Secondary Malignant Neoplasm Brain (HCC) CT ABDOMEN PELVIS WITH IV CONTRAST RAD [...] Bone (HCC) Secondary Malignant Neoplasm Brain (HCC) COMPREHENSIVE METABOLIC PANEL, S/P Routine 01/31/2025 12:40 PM CDT Encounter For Antineoplastic Chemotherapy 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) Other Shelter Current Drug Therapy CBC WITH DIFFERENTIAL, B Routine 01/31/2025 12:40 PM CDT Encounter For Antineoplastic Chemotherapy 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) Other Res Habilitation Assistant Current Drug Therapy MAGNESIUM, S Routine 01/31/2025 12:40 PM CDT Encounter For Antineoplastic Chemotherapy 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) Other Shelter Current Drug Therapy COMPREHENSIVE METABOLIC PANEL, S/P Routine 01/02/2025 2:26 PM CDT Encounter For Antineoplastic Chemotherapy 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) Other Res Habilitation Assistant Current Drug Therapy CBC WITH DIFFERENTIAL, B Routine 01/02/2025 2:26 PM CDT Encounter For Antineoplastic Chemotherapy 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) Other Shelter Current Drug Therapy MAGNESIUM, S Routine 01/02/2025 2:26 PM CDT Encounter For Antineoplastic Chemotherapy 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) Other Shelter Current Drug Therapy ALDOLASE, S Routine 12/06/2024 8:30 AM CDT Other Res Habilitation Assistant Current Drug Therapy COMPREHENSIVE METABOLIC PANEL, S/P Routine 12/06/2024 8:30 AM CDT Encounter For Antineoplastic Chemotherapy 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) Other Res Habilitation Assistant Current Drug Therapy CBC WITH DIFFERENTIAL, B Routine 12/06/2024 8:30 AM CDT Encounter For Antineoplastic Chemotherapy 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) Other Shelter Current Drug Therapy MAGNESIUM, S Routine 12/06/2024 8:30 AM CDT Encounter For Antineoplastic Chemotherapy 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) Other Shelter Current Drug Therapy COMPREHENSIVE METABOLIC PANEL, S/P Routine 11/08/2024 7:13 AM CDT Encounter For Antineoplastic Chemotherapy 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) Other Res Habilitation Assistant Current Drug Therapy CBC WITH DIFFERENTIAL, B Routine 11/08/2024 7:13 AM CDT Encounter For Antineoplastic Chemotherapy 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) Other Res Habilitation Assistant Current Drug Therapy MAGNESIUM, S Routine 11/08/2024 7:13 AM CDT Encounter For Antineoplastic Chemotherapy 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) Other Shelter Current Drug Therapy CREATINE KINASE (CK), S Routine 11/08/2024 7:12 AM CDT Other Shelter Current Drug Therapy from Last 3 Months Results * MR Brain without and with IV Contrast (01/31/2025 3:46 PM CDT) Anatomical Region Laterality Modality Head, Brain, Neuroradiology RST LOS, Neuroradiology ARZ LOS, Neuroradiology FLA LOS N/A Magnetic Resonance Impressions 01/31/2025 7:21 PM [...] to suggest progression of cerebral metastatic disease. us Jennifer Corcoran APRN C.N.P., M.S. IMG MRI PROCE DURES Final Result * CT Abdomen Pelvis with IV Contrast [...] focal fat infiltration in the left lobe (08/21). Negative adrenals. No lymphadenopathy. Nondilated small bowel. Colonic diverticulosis. No ascites or peritoneal lesions. Upper abdominal collaterals. Tiny nonobstructing left renal stone. Stable biopsy-proven osseous metastases in the left sacrum (). No new suspicious bone lesions. Bilateral femoral screw fixation. This examination was performed in conjunction with a CT of the chest, which will be reported separately. Procedure Note Nish Solomon M.B.B.S. - 01/31/2025 EXAM: CT ABDOMEN PELVIS WITH IV CONTRAST COMPARISON: CT 10/28/2024 FINDINGS: No definite liver metastases. Subcapsular focal fat infiltration in theleft lobe (08/21). Negative adrenals. No lymphadenopathy. Nondilated small bowel. Colonic diverticulosis. No ascites or peritoneallesions. Upper abdominal collaterals. Tiny nonobstructing left renalstone. Stable biopsy-proven osseous metastases in the left sacrum (). No newsuspicious bone lesions. Bilateral femoral screw fixation. This examination was performed in conjunction with a CT of the chest,which will be reported separately. IMPRESSION: Stable exam. No new or increasing metastatic disease in abdomen andpelvis. Jennifer Corcoran APRN C.N.P., M.S. IMG CT PROCED URES Final [...] throughout both lungs are stable. Jennifer Corcoran APRN, C.N.P., M.S. IMG CT PROCED URES Final Result * (ABNORMAL) CBC with Differential, Blood (01/31/2025 12:40 PM CDT) Only the most recent of4 resultswithin the time period is included. Hemoglobin 12.8 11.6 - 15.0 g/dL 01/31/2025 [...] M.S. LAB BLOOD ADD -ON Final Result [facility] [address] [place] [address], [place] DTL [facility] [address] [place] [address] DHPM [facility] [address] [place] [address] * (ABNORMAL) Magnesium (01/31/2025 12:40 PM CDT) Only the most recent of4 resultswithin the time period is included. Magnesium, S 1.6(L) 1.7 - 2.3 mg/dL 01/31/2025 2:18 PM CDT DTL Blood (Blood, Venous) 01/31/2025 12:40 PM CDT 01/31/2025 12:49 PM CDT Jennifer Corcoran APRN C.N.P., M.S. LAB BLOOD ADD -ON Final Result [facility] [address] [place] [address], [facility] [address] [place] [address] * (ABNORMAL) Comprehensive Metabolic Panel (01/31/2025 12:40 PM CDT) Only the most recent of4 resultswithin the time period is included. Potassium, S 4.4 3.6 - 5.2 mmol/L [...] M.S. LAB [place]LOOD [place] [address], [place] [address] * Aldolase (12/06/2024 8:30 AM CDT) Aldolase, S 4.4 <7.7 U/L 12/06/2024 10:56 AM CDT DTL Comment: ----ADDITIONAL INFORMATION---- This test has been modified from the columnist's instructions. Its performance characteristics were determined by [facility] in a manner consistent with CLIA requirements. This test has not been cleared or approved by the U.S. Food and Drug Administration. Blood (Blood, Venous) 12/06/2024 8:30 AM CDT 12/06/2024 9:37 AM CDT us Joshua Fraga M.D. LAB BLOOD NON ADD-ON Final Result Performing Organization Address City/[facility]/ZIP Co de Phone Number [facility] [address] [place], [place] [id number] [place] [address] 200 [place] [address] * (ABNORMAL) CK (Creatine Kinase) (11/08/2024 7:12 AM CDT) Creatine Kinase (CK), S 24(L) 26 - 192 U/L 11/08/2024 12:28 PM CDT DTL Blood (Blood, Venous) 11/08/2024 7:12 AM CDT 11/08/2024 11:59 AM CDT us Joshua Fraga M.D. LAB BLOOD ADD-ON Final Res ult Performing Organization Address [facility] Co de Phone Number [facility] [address] [place], [place] [id number] [place] [address] 200 [place] [address] from Last 3 Months Additional Health Concerns Infection Onset Date Last Indicated Protective Environment 11/08/2024 Insurance [facility] [place] [id number] Advance Directives For more information, please contact: [phone] Documents on File Type Date Recorded Patient Information Systems Auditor Expl anation Advance Directives 09/21/2023 7:33 AM Carlito JZena Beach Malcolm Gandhi HCPOA/ADVOCATE/AGENT/R EPRESENTATIVE/SURROGAT E * Full Code (Latest Code Status on File) Date Activated Date Inactivated Comments 01/16/2019 12:55 PM 01/16/2019 4:23 PM Question Answer Comments Full Code: Not Discussed Due to: Patient not available * Full Code Date Activated Date Inactivated Comments 12/27/2018 9:36 AM 12/30/2018 4:14 PM Question Answer Comments Full Code: Discussed * Full Code Date Activated Date Inactivated Comments 12/25/2018 11:33 AM 12/27/2018 9:36 AM Question Answer Comments Full Code: Discussed Healthcare Agents on File Name Relationship Healthcare Agent Relationship Communication Carlito Gandhi Spouse Health Care Agent Jamie Grey Daughter First Alterna te Health Care Agent Rima Stewart Daughter First Alternat e Health Care Agent Rigo Gandhi Son First Alternate Health Care Agent Care Teams [employer] Relationship Specialty Start Date End Date Elsewhere, Pcp PCP - General Family Medicine 01/21/21
--- OUTSIDE RECORDS SUMMARY | 2025-02-07 20:03 | XMS_ITS | Clinical Summary ---
Author Organization [facility] Address [address] [place] [address] Care Team Providers Care Wood Casket Maker Name Role Phone Stuart Santos MD Primary Care Provider [phone] Source Comments You are receiving this document as you are listed as the primary care provider,follow-up provider, or the patient has been referred to you for consultation.This is in compliance with the Medicare and[facility] EHR Incentive Program,which states Providers who transition their patient to another setting of careor provider of care or refers their patient to another provider of care shouldprovide summary care record for each transition of care or referral. [facility] Allergies No known active allergies Medications SUMAtriptan (IMITREX) 50 MG tablet Take 50 mg by mouth. 12/17/2015 Active raNITIdine (ZANTAC) 150 MG tablet Take 150 mg by mouth. 12/31/2016 Active Active Problems No known active problems Social History Tobacco Use Types Packs/Day Years Used Date Smoking Tobacco: Never Smokeless Tobacco: Never Alcohol Use Standard Drinks/Week Comments Yes 0 (1 standard drink = 0.6 oz pur e alcohol) occas Comments No Sex and Gender Information Value Date Recorded Sex Assigned at Not on file Legal Sex Female 12:27 AM CDT Gender Identity Not on file Sexual Orientation Not on file Last Filed Vital Signs Vital Sign Reading Time Taken Comments Blood Pressure 151/69 03/07/2017 3:15 PM CDT Pulse 52 03/07/2017 3:15 PM CDT Temperature 36.7 C (98 F) 03/07/2017 2:28 PM CDT Respiratory Rate 16 03/07/2017 3:15 PM CDT Oxygen Saturation 98% 03/07/2017 3:15 PM CDT Inhaled Oxygen Concentration - - Weight 80.7 kg (178 lb) 03/07/2017 11:15 AM CDT Height 167.6 cm (5' 6) 03/07/2017 11:15 AM CDT Body Mass Index 28.73 03/07/2017 11:15 AM CDT Plan of Treatment Health Maintenance Due Date Last Done Comments Colon Cancer Screening Plan Due 1957 Hep C Screening (Preventive Services) 1955 Mammogram 1955 Adult Preventive Visit 1975 Cholesterol 2002 Pneumococcal Vaccine 50+ Yrs (1 of 1 - PCV) 2007 Zoster/Shingles Vaccine (1 o f 2) 2007 DTaP/Tdap/Td Vaccine (2 - Tdap) 02/07/2017 02/07/2007, 01/28/2007 COVID-19 Vaccine (1 - 2023-2 5 season) 2025 Influenza Vaccine (#1) 2025 03/12/2015 RSV Vaccine (1 - 1-dose 75+ series) 2032 HepA Vaccine Aged Out No longer eligi ble based on patient's age to complete this topic HepB Vaccine Aged Out No longer eligi ble based on patient's age to complete this topic Hib Vaccine Aged Out No longer eligi ble based on patient's age to complete this topic IPV (Polio) Vaccine Aged Out No longe r eligible based on patient's age to complete this topic MCV4 Vaccine Aged Out No longer eligi ble based on patient's age to complete this topic Meningococcal B Vaccine Aged Out No l onger eligible based on patient's age to complete this topic Insurance SELF INSURED Care Teams Wood Casket Maker Relationship Specialty Start Date End Date Stuart Santos MD [address] [place] [address] PCP - General Family Practice 02/10/17
--- OUTSIDE RECORDS SUMMARY | 2025-02-07 20:03 | XMS_ITS | Encounter Summary ---
Author Organization [facility] Address [address] [place] [address] Care Team Providers Care Automatic Cigar Wrapper Tender Name Role Phone Elsewhere, Pcp Primary Care Provider Unavailabl e Encounter Details Date Type Department Care Team (Late st Contact Info) Description 02/07/2025 Clinical Communication Department of Oncology in [place], [place] [address] [place] [phone] Melina Lorenzo M.D. [address] [place] [phone] Social History Tobacco Use Types Packs/Day Years Used Date Smoking Tobacco: Never Passive Smoke Exposure: Past Smokeless Tobacco: Never Comments:Nonsmoker occasiona l/social in my 20s Passive Exposure Comments:My Dad Alcohol Use Standard Drinks/Week Comments Yes 3 (1 standard drink = 0.6 oz pur e alcohol) socially C Utilities Answer Date Recorded In the past [...] your living situation today? I have a [facility] place to live 03/12/2024 Education Answer Date Recorded What is the highest level of school you have completed or the highest degree you have received? Some college, no degree 01/10/2019 Comments No Sex and Gender Information Value Date Recorded Sex Assigned at Female 05/12/2021 8:37 PM SUPERVISOR TREE TRIMMING Legal Sex Female 11:57 AM SUPERVISOR TREE TRIMMING Gender Identity Female 01/02/2019 1:16 PM CDT Sexual Orientation Straight 05/12/2021 8: 37 PM SUPERVISOR TREE TRIMMING documented as of this encounter Miscellaneous Notes * Telephone Encounter - Melina Lorenzo M.D. 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 She is on amivantamab and pemetrexed, last received 02/01/2025. She typically has fatigue following, so treatment changes were made to assist with this. Her calls reporting Sapphire has not been feeling well for the last 2 days. She is extremely fatigued/weak, has a low grade fever of 100F, raspy voice, and productive cough. I can hear her coughing excessively in the background. Her is concerned. She will present to [facility] for assessment, would recommend assessing for viral etiology, pneumonia, etc. He feels her intake is not great, so she may require IVF. I did call and give handoff to [facility] nurse. Melina Lorenzo MD Med Onc Fellow documented in this encounter Plan of Treatment Upcoming Encounters Date Type Department Care Team (Latest Contact Info) Description 02/25/2025 4:15 PM CDT Clinical Communication Virtual Review in [address] [phone] 02/27/2025 8:15 AM CDT Lab Department of Oncology in [address] [phone] Jennifer Corcoran APRN, C.N.P., M.S. [address] [place] [phone] 02/27/2025 10:20 AM CDT Office Visit Department of Oncology in [address] [phone] Jennifer Corcoran APRN, C.N.P., M.S. [address] [place] [phone] 02/27/2025 1:30 PM CDT Infusion Department of Oncology in [address] [phone] Jennifer Corcoran APRN, C.N.P., M.S. [address] [place] [phone] 03/25/2025 1:00 PM CDT Clinical Communication Virtual Review in [place], [place] [address] [place] [address] 03/27/2025 7:00 AM CDT Lab Department of Oncology in [place], [place] [address] [place] [phone] Jennifer Corcoran APRN, C.N.P., M.S. [address] [place] [phone] 03/27/2025 9:00 AM CDT Office Visit Department of Oncology in [place], [place] [address] [place] [phone] Jennifer Corcoran APRN, C.N.P., M.S. [address] [place] [phone] 03/27/2025 10:00 AM CDT Infusion Department of Oncology in [place], [place] [address] [place] [phone] Jennifer Corcoran APRN, C.N.P., M.S. [address] [place] [phone] 03/28/2025 1:00 PM CDT Procedure visit Department of Orthopedic Surgery in [place], [place] [address] [place] [phone] Danika Navarro APRN, C.N.P., D.N.P. [address] [place] [phone] 04/22/2025 12:45 PM SUPERVISOR TREE TRIMMING Clinical Communication Virtual Review in [place], [place] [address] [place] [phone] 04/24/2025 7:30 AM SUPERVISOR TREE TRIMMING Lab Department of Oncology in [place], [place] [address] [place] [phone] Joshua Fraga M.D. [address] [place] [address] 04/24/2025 9:40 AM SUPERVISOR TREE TRIMMING Office Visit Department of Oncology in [place], [place] [address] [place] [phone] Joshua Fraga M.D. [address] [place] [phone] 04/24/2025 11:00 AM SUPERVISOR TREE TRIMMING Infusion Department of Oncology in [place], [place] [address] [place] [phone] Joshua Fraga M.D. [address] [place] [phone] documented as of this encounter Visit Diagnoses Not on filedocumented in this encounter Additional Health Concerns Infection Onset Date Last Indicated Resolved Time Protective Environment 11/08/2024 11/08/2024 documented as of this encounter Care Teams Automatic Cigar Wrapper Tender Relationship Specialty Start Date End Date Elsewhere, Pcp PCP - General Family Medicine 01/21/21 documented as of this encounter
--- OUTSIDE RECORDS SUMMARY | 2025-02-07 20:03 | XMS_ITS ---
Author Organization [facility] Address [address] [place] [address] Care Team Providers Care Proposal Rep Name Role Phone Elsewhere, Pcp Primary Care Provider Unavailabl e Active Problems * This document contains information received from the source organization and may not represent a complete record from that organization. 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 EGFR exon 19 deletion s/p gamma knife and L femur irradiation. On osimertinib 80mg daily since 01/2019. 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 Post Operative Nausea/Vomiting Migraine Headache Overview (12/22/2018): On TX tracks. Last dose was in September with her last migraine. She has max out prescribed however she has not taken any. Apnea Sleep Obstructive Gastroesophageal Reflux Disease NOS Current Treatment and Therapy Plans PEMEtrexed / Amivantamab-vmjw 700 mg (Target Dose Not Tolerated)* Plan Start Date:02/26/2024 Plan Provider:Joshua Fraga M.D. Linked Problems Encounter For Antineoplastic Chemotherapy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)Other Detention Current Drug Therapy Treatment Medications Current Day (Day 1 , Cycle 15 - Planned for 02/25/2025) Next Day (Day 1, Cycle 16 - Planned for 03/25/2025) amivantamab-vmjw (Rybrevant)amivantamab-vmjw (Rybrevant) IVPB solutionPEMEtrexed (Alimta)PEMEtrexed (Alimta) IVPB (500 mg vial) (Alimta) amivantamab-vmjw 700 mg in NaCl 0.9% 250 mL IVPB (Rybrevant)PEMEtrexed disodium 500 mg in NaCl 0.9% 120 mL IVPB (Alimta) amivantamab-vmjw 700 mg in NaCl 0.9% 250 mL IVPB (Rybrevant)PEMEtrexed disodium 500 mg in NaCl 0.9% 120 mL IVPB (Alimta) Vascular Access Patency - Implanted Vascular Access Device (IVAD) Venous Non-Valved* Plan Start Date:09/19/2023 Linked Problems Malignant Neoplasm Of Lung L ower Lobe Or Bronchus Right (HCC) Treatment Medications No medications scheduled. Past Treatment and Therapy Plans Hematology / Oncology Treatment 1 Plan Name Start Date Discontinue Date Treatment Medications Discontinue Reason Plan Provider Cycles CARBOplatin / PEMEtrexed / Amivantamab-v mjw 2100 mg 09/12/19 24 02/10/2024 amivantamab-vmjw (Rybrevant)amivantama b-vmjw (Rybrevant) IVPB solutionCARBOplatin (Paraplatin) IVPB (BY AUC) in 250 mL (Paraplatin)PEMEtrexe d (Alimta)PEMEtrexed (Alimta) IVPB (500 mg vial) (Alimta) Unlisted Joshua Fraga M.D. 6 of 10 cycles started Past Radiation Episodes * IMRT: Right Lung - HilumOverview* First Treatment Date Last Treatment Date Treatment Site Technique Goal Episode Provider 12/22/2020 01/01/2021 Right Hilum of lung IMRT Curative * Linked Problems Malignant Neoplasm Of Lung L ower Lobe Or Bronchus Right Treatment Courses* Course 3x BH Rt Lung 12/22/2020 - 01/01/2021 Treatment Period Fraction Dose Fractions Total Dose Plans Planned F1_BH Rt Lung 12/22/2020 - 01/01/2021 750 cGy 8 / 8 6,000 cGy Reference Points Delivered [id number] 12/22/2020 - 01/01/2021 6,000 cGy Radiation Treatments (No Episode) * Course 2x femurs,Lsacrm 01/24/2019 - 01/31/2019 Treatment Period Energy Fraction Dose Fractions Total Dose Plans Planned F1 L femur 01/24/2019 - 01/31/2019 400 cGy 5 / 5 2,000 cGy F1 L sacrum 01/24/2019 - 01/31/2019 400 cGy 5 / 5 2,000 cGy F1 R femur 01/24/2019 - 01/31/2019 400 cGy 5 / 5 2,000 cGy Reference Points Delivered [id number] Lfemur 01/24/2019 - 01/31/2019 2,000 cGy [id number] Lsacrum 01/24/2019 - 01/31/2019 2,000 cGy [id number] Rfemur 01/24/2019 - 01/31/2019 2,000 cGy * Course 1 GK BrainMets 01/16/2019 - 01/16/2019 Treatment Period Energy Fraction Dose Fractions Total Dose Plans Planned GammaKnife 01/16/2019 - 01/16/2019 2,200 cGy 2,200 cGy Reference Points Delivered [id number] 01/16/2019 - 01/16/2019 2,200 cGy Lifetime Dose Tracking * Chemical Lifetime Dose Automatic Entry Manual Entr y Radiation 304.16 mGy 304.16 mGy 0 mGy Fluoro Time 20.413 minutes 20.413 minutes 0 minutes DAP (uGy-m2) 4,374.79 uGy-m2 4,374.79 uGy-m2 0 uGy-m2
--- OUTSIDE RECORDS SUMMARY | 2025-02-07 20:03 | XMS_ITS | Clinical Summary ---
Author Organization [facility] Address [address] [place] [id number] Care Team Providers Care Enrichment Director Name Role Phone Stuart Santos MD Primary Care Provider [phone]- [phone] Allergies No known active allergies Medications TAGRISSO 80 mg tab Take 80 mg by mouth once daily. 02/07/20 19 Active ipratropium-albute roL (COMBIVENT RESPIMAT) (20-100 mcg each actuation) mist inhalerIndications :Bronchospasm Inhale 1 Puff by mouth 4 times daily if needed for Shortness Of Breath. 1 Each 2 07/27/19 22 Active famotidine (PEPCID) 20 mg tabletIndications: Chronic GERD Take 1 Tablet (20 mg) by mouth two times daily. 180 Tablet 3 02/16/20 23 Active rizatriptan (MAXALT) 10 mg tabletIndications: Migraine with aura and without status migrainosus, not intractable Take 1 Tablet (10 mg) by mouth every 2 hours if needed for Migraine. For migraine. Max dose 30 mg/24 hours. 27 Tablet 5 02/16/20 23 Active CPAPIndications:OS A (obstructive sleep apnea),Dermatitis Replacement CPAP (E0601) machine for home use at pressure: 6 , Choice of mask (A7030 or A7034) w/full face cushion (A7031) x1/mo, nasal cushion (A7032) x2/mo, or nasal pillows (A7033) x 2/mo; Length of Need: 99 months; Frequency of use: Daily 1 Each 11 01/24/20 24 Active ondansetron (ZOFRAN ODT) 4 mg disintegrating tabletIndications: Non-intractable vomiting with nausea PLACE 1 TABLET (4 MG) ON THE TONGUE EVERY 8 HOURS IF NEEDED FOR NAUSEA/VOMITING . 30 Tablet 5 03/22/20 Active omeprazole (PRILOSEC) 40 mg Delayed-Release capsuleIndications :Dysphagia, unspecified type,Esophagitis,S tricture and stenosis of esophagus,Hiatal hernia TAKE 1 CAPSULE (40 MG) BY MOUTH ONCE DAILY. TAKE 30-60 MINUTES BEFORE A MEAL/FOOD ONCE A DAY. 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 Receives chemotherapy and all treatment at [facility]. She has received radiation therapy to both femurs and prophylactic orthopedic stabilization. CELESTE 05/09/2017 AHI-9, severe in REM 05/16/2017 S/P lumbar discectomy 11/12/2013 IUD (intrauterine device) in place 04/03/2010 Lumbar disc herniation L4-5 04/03/2010 Migraine NOS/not Intrcbl 04/18/2009 GERD (gastroesophageal reflux disease) 9 Disorders of bursae and tend ons in shoulder region, unspecified 03/22/2008 Right 2nd Transfer Metatarsalgia 03/22/2008 Hallux rigidus 03/30/2007 Resolved Problems Problem Noted Date Diagnosed Date Resolved Date Low back pain radiating to left leg 04/03/2010 11/12/2013 Contusion of foot 08/03/2007 04/03/2010 Immunizations Immunization Administration Dates Next Due AMB INFLUENZA, IIV4 (AGE=>6M OS) MDV (Flu Clinic Only) 02/24/2017 Influenza Virus, Unspecified 03/12/2015 Influenza, IIV3 (Age >=3 years) 04/03/2010,03/20 Influenza, IIV4 (=>6mos) MDV 02/20/2020 Influenza, Inactivated AIIV4 (Age 65+ Years) Preserv Free 03/15/2023 Influenza, Injectable, Mdck, Quadrivalent, W/preservative 04/07/2022 Influenza,CCIIV4 PRESERV FREE 02/19/2021 Pneumococcal Conj 20-valent (Prevnar 20) 023 Pneumococcal conj 13-Valent (Prevnar 13) 019 Td (Age >=7 Years) 01/28/2007 Tdap 04/06/2023,03/05/2013,02/07/2007 Tdap, Unspecified 03/05/2013 Zoster (Shingrix-RZV, recombinant) 12/14/2019, Zoster (Zostavax-ZVL, live) 03/27/2013 Family History Medical History Relation Name Comments Other Brother 1 Ankush cd Cancer Brother 2 Elmer testicular Diabetes Father age 40 Stroke Father age 70 Other Mother chem dep (cd) Osteoporosis Sister 1 Asya Other Sister 1 Asya cd Cancer Sister 2 Lory uterine cancer; stage 3 invasive squamous cell carcinoma Cancer-breast No Family History Relation Name Status Comments Brother 1 Ankush Brother 2 Elmer Alive Father Mother Sister 1 Asya Sister 2 Lory Social History Tobacco Use Types Packs/Day Years Used Date Smoking Tobacco: Never Smokeless Tobacco: Never Tobacco Cessation:Counseling Given: Yes Alcohol Use Standard Drinks/Week Comments Not Currently 0 (1 standard drink = 0.6 oz pur e alcohol) once per month or less PHQ-2 Answer Date Recorded PHQ-2 TOTAL SCORE 0 02/15/2023 Social Connections Answer Date Recorded Frequency of Communication with Friends and Fami ly Not on file 08/29/2023 Financial Resource Strain Answer Date R ecorded Difficulty of Paying Living Expenses 3 08/23/2022 Difficulty of Paying Living Expenses Not on file 08/23/2022 Food Insecurity Answer Date Recorded Worried About Running Out of Food in the Last Ye ar 1 08/23/2022 Transportation Needs Answer Date Record ed Lack of Transportation (Medical) 1 08/23/2022 Housing Stability Answer Date Recorded Unable to Pay for Housing in the Last Year 1 08/23/2022 Comments No Sex and Gender Information Value Date Recorded Sex Assigned at Female 04/21/2020 10:51 AM SOCIAL ORGANIZATION PROFESSOR Legal Sex Female 5:26 AM SOCIAL ORGANIZATION PROFESSOR Gender Identity Female 04/21/2020 10:51 AM SOCIAL ORGANIZATION PROFESSOR Sexual Orientation Not on file 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 on file Not on file Not on file Obstetrics History Last Filed Vital Signs Vital Sign Reading Time Taken Comments Blood Pressure 117/55 05/10/2023 11:31 AM SOCIAL ORGANIZATION PROFESSOR Pulse 61 05/10/2023 11:31 AM SOCIAL ORGANIZATION PROFESSOR Temperature 37 C (98.6 F) 04/06/2023 1:42 PM SOCIAL ORGANIZATION PROFESSOR Respiratory Rate 14 05/10/2023 11:31 AM SOCIAL ORGANIZATION PROFESSOR Oxygen Saturation 96% 05/10/2023 11:31 AM SOCIAL ORGANIZATION PROFESSOR Inhaled Oxygen Concentration - - Weight 81 kg (178 lb 9.6 oz) 04/13/2023 9:50 AM SOCIAL ORGANIZATION PROFESSOR Height 167.7 cm (5' 6.02) 02/15/2023 3:26 PM CD T Body Mass Index 28.81 02/15/2023 3:26 PM CDT Plan of Treatment Health Maintenance Due Date Last Done Comments RSV vaccine for adults or (1 - Risk 60-74 years 1-dose series) 2017 Mammogram for age 45-75 01/10/2019 01/11/20 18, 12/15/2016, 12/11/2015, Additional history exists DEXA/DXA scan for age 65+ 2022 Lipids for age 45-75 01/25/2023 01/25/2018, 11/23/19 15 Colonoscopy through age 75 05/09/202305/09, 04/18/2013 (Completed outside of [facility]) BMI (ht and wt on same day) for age 18+ 02/16/2024 02/15/2023, 07/29/2021, 02/28/2019, Additional history exists Depression screening for age 12+ 02/16/2024 02/15/2023, 01/18/2018, 12/31/2016, Additional history exists COVID-19 vaccine series ( season) 2025 03/15/2023, 03/05/2022, 10/06/2021, Additional history exists Influenza Vaccine (#1) 2025 , 04/07/2022, 02/19/2021, Additional history exists Tetanus booster 04/06/2033 04/06/2023, 11/2012, 03/05/2013, Additional history exists Hepatitis C screening for age 18-79 Completed 01/25/2018 Zoster (shingles) series for age 50+ Completed 12/14/2019, 05/08/2019, 03/27/2013 Pneumococcal series for age 50+ Completed 04/06/2023, 05/08/2019 Hepatitis B series for 19+ Aged Out N o longer eligible based on patient's age to complete this topic Procedures Procedure Name Priority Date/Time Associated Diagnosis Comments COLONOSCOPY SCREENING Routine 05/09/2018 12:00 AM SOCIAL ORGANIZATION PROFESSOR Screening for colon cancer ANTI HCV Routine 01/25/2018 8:55 AM CDT Need for hepatitis C screening test LIPID PANEL W REFLEX MEASURED LDL Routine 01/25/2018 8:55 AM CDT Lipid screening XR MAMMO BILAT SCREENING Routine 01/10/2018 9:53 AM CDT Visit for screening mammogram from Last 3 Months or Most Recently Relevant to Health Maintenance Results * COLONOSCOPY SCREENING (05/09/2018 12:00 AM SOCIAL ORGANIZATION PROFESSOR) us Stuart Santos MD GI PROCEDURE ORD Final Res ult * (ABNORMAL) LIPID PANEL W REFLEX MEASURED LDL (01/25/2018 8:55 AM CDT) CHOLESTEROL,TOTAL 288(H) 100 - 199 mg/dL 01/25/2018 2:46 PM CDT [facility] TRIGLYCERIDES 160(H) <150 mg/dL 01/25/2018 2:46 PM CDT [facility] HDL CHOLESTEROL 59 >40 mg/dL 8 2:46 PM CDT [facility] NON-HDL CHOLESTEROL 229(H) <145 mg/dl 01/25/2018 2:46 PM CDT [facility] CHOL/HDL RATIO 4.88(H) <4.50 01/25/2018 2:46 PM CDT [facility] LDL CHOLESTEROL 197(H) <=130 mg/dL 01/25/2018 2:46 PM CDT [facility] PROVIDER ORDERED STATUS RANDOM 01/25/2018 2:46 PM CDT [facility] Blood BLOOD SPECIMEN / Unknown Venipuncture / Unknown 01/25/2018 8:55 AM CDT 01/25/2018 8:55 AM CDT Stuart Santos MD CHEMISTRY Final Resu lt [facility] [address] [place] [address], [place] * ANTI HCV (01/25/2018 8:55 AM CDT) HEPATITIS C ANTIBODY Non-React jb Non-React jb 01/26/2018 8:43 PM CDT [facility] Comment:Antibodies to HCV no t detected; does not exclude the possibility of exposure to HCV. Blood BLOOD SPECIMEN / Unknown Venipuncture / Unknown 01/25/2018 8:55 AM CDT 01/25/2018 8:55 AM CDT Stuart Santos MD SEND OUTS Final Resu lt [facility] [address] [place] [address], [place] * XR MAMMO BILAT SCREENING (01/10/2018 9:53 AM CDT) Anatomical Region Laterality Modality BREASTS, Breast Left, Breast Right Bilateral Mammography Impressions 01/10/2018 12:20 PM CDT There is no radiographic evidence for malignancy. Recommend annual mammograms. A lay language report of this examination will be provided to the patient. MAMMOGRAM ASSESSMENT: ACR 2 Benign Narrative 01/10/2018 12:20 PM CDT XR MAMMO BILAT SCREENING [[id number]] CLINICAL HISTORY: This is an asymptomatic 62 y.o. patient. INDICATION FOR EXAM: Mammogram Screening. TECHNIQUE: CC & MLO views were obtained. This digital study was evaluated with the assistance of Computer-Aided Detection. COMPARISON FILMS: Yes 12/15/16 [facility] 12/11/15 [facility] FINDINGS: Mammographically, the breast tissue has scattered fibroglandular densities. No suspicious masses or microcalcifications. Benign appearing calcifications within both breasts. Stuart Santos MD MAMMO Final Resu lt from Last 3 Months or Most Recently Relevant to Health Maintenance Insurance [employer] [id number] Advance Directives * Full Code (Latest Code Status on File) Date Activated Date Inactivated Comments 04/10/2010 11:50 AM 04/10/2010 7:55 PM Care Teams Enrichment Director Relationship Specialty Start Date End Date Stuart [place] [address] PCP - General 07/04/06
[2025-02-07 20:10] VITALS: BP 104/73; PULSE 99; RESP 18; TEMP 37.8; O2SAT 96; BMI 27.1
--- NOTE | 2025-02-07 20:39 | CRLHL7_ITS ---
For Patients: As a result of the Century Cures Act, medical imaging exams and procedure reports are released immediately into your electronic medical record. You may view this report before your referring provider. If you have questions, please contact your health care provider. Indication: Cough, viral symptoms, lung cancer Technique: Noncontrast CT of the chest with multiplanar reformats. Comparison: Chest radiograph performed 07/29/2021 Findings: Lungs: Right perihilar/infrahilar mass, margins not well delineated due to the absence of IV contrast, suspected to measure approximately 3.8 x 3.3 cm. There is occlusion of multiple branches of the right lower lobe bronchial tree with associated atelectasis and a small effusion. Multiple bilateral patchy pulmonary opacities are also noted. Mediastinum: No acute abnormality appreciated. Right chest MediPort. Calcified coronary arterial and aortic atherosclerosis. Lymph nodes: No gross lymphadenopathy. Upper abdomen: No acute abnormality appreciated. Soft tissues: No acute abnormality appreciated. Bones: No acute abnormality appreciated. Mild spondylosis. Impression: Evaluation is somewhat limited due to the absence of comparison cross-sectional imaging. Note is made of a mass in the right perihilar/infrahilar space, likely corresponding to known malignancy. There is complete opacification of multiple bronchial branches to the right lower lobe with associated atelectasis and a small effusion. Note is also made of diffuse patchy pulmonary opacities in the bilateral lungs. Recommend correlation with prior imaging as well as history and symptoms to assess for aspiration and/or a viral or atypical pneumonia. Recommend 3 month interval follow-up CT, or sooner if per oncology. Please note that all CT scans at this facility use dose modulation, iterative reconstruction, and/or weight-based dosing when appropriate to reduce radiation dose to as low as reasonably achievable. Dictated by Lennox Hu MD @ 02/07/2025 9:35:23 PM (Electronically Signed)
--- NOTE | 2025-02-07 20:44 | ED.GENADULT ---
HPI - General Adult General Date Seen: 02/07/25 Chief complaint: Sore Throat Stated complaint: respiratory issue, sore throat Time Seen by Provider: 02/07/25 20:28 Source: patient Mode of arrival: ambulatory Limitations: no limitations History of Present Illness HPI narrative: Patient is a 69-year-old female with a history of lung cancer presenting to the emergency department for fever and cough. She most recently had chemotherapy on 02/01/2025. Has had low-grade fevers at home but nothing over 100. She states this cough has been going on for few days and is producing mucus but she is unsure what color. She had a headache a few days ago that has resolved. She is feeling more fatigued and nauseated than typically after he chemo but states the nausea is okay at this time. Denies feeling dehydrated. She spoke to her oncologist who recommended she come to the emergency department for evaluation. Her oncologist did call head time and informed us that therapy she is on his unlikely to cause neutropenic fever. Patient denies chest pain, shortness of breath, weakness, numbness, abdominal pain, diarrhea, constipation, vision changes. He does note she had mildly sore throat at seems to have resolved. No other concerns noted at this time. Related Data Home Medications ?Medication ?Instructions ?Recorded ?Confirmed clindamycin phosphate 1 % topical 1 applic topical BID 01/23/24 02/07/25 gel clobetasol 0.05 % topical ointment 1 applic topical BID 01/23/24 02/07/25 dexamethasone 0.5 mg/5 mL oral 1 mg PO Q6H 01/23/24 02/07/25 elixir dexamethasone 0.5 mg/5 mL oral 0.5 mg PO Q12H 01/23/24 02/07/25 solution folic acid 1 mg tablet 1 mg PO DAILY 01/23/24 02/07/25 ketoconazole 2 % shampoo topical 01/23/24 lidocaine 5 % topical ointment topical 01/23/24 olanzapine 5 mg tablet 5 mg PO DAILY 01/23/24 02/07/25 omeprazole 40 mg capsule,delayed 40 mg PO DAILY 01/23/24 02/07/25 release ondansetron 4 mg disintegrating 4 mg PO Q8H PRN nausea/vomiting 01/23/24 02/07/25 tablet prochlorperazine maleate 10 mg 10 mg PO Q6H PRN nausea/vomiting 01/23/24 02/07/25 tablet rizatriptan 10 mg tablet 10 mg PO Q2H PRN migraine 01/23/24 02/07/25 triamcinolone acetonide 0.1 % 1 applic topical BID-TID 01/23/24 02/07/25 topical cream Allergies Allergy/AdvReac Type Severity Reaction Status Date / Time aprepitant (From Emend) Allergy Unknown Verified 02/07/25 20:19 fosaprepitant (From Emend) Allergy Unknown Verified 02/07/25 20:19 Review of Systems Status of ROS: Reports: 10 or more systems reviewed and unremarkable except as noted in History and below PFSH [facility] Social History Smoking Status: Former smoker How often do you have a drink containing alcohol: never How often do you have six or more drinks on one occasion: Never AUDIT-C Alcohol total score: 0 Non-prescribed substance use: denies use service: No Exam Narrative: Exam Narrative: Const: Well-nourished, Well-developed, in mild distress Eyes: PERRL, no conjunctival injection, and symmetrical lids HENT: Atraumatic external nose and ears. Moist mucous membranes. Uvula midline, no tonsillar exudate or swelling. Neck: Symmetric, trachea midline, No thyromegaly. CVS: RRR, No murmurs or gallops. Peripheral pulses 2+ and equal in all extremities RESP: Unlabored respiratory effort. Clear to auscultation bilaterally. GI: Nontender/Nondistended, No rebound or guarding. MSK:Extremities w/o deformity, Normal Active ROM Skin: Warm, Dry. No rashes or lesions. Neuro: Normal Muscle tone, No focal neurological deficits. Psych: Awake, Alert, & Oriented x3. Appropriate mood and affect. Const: Vital Signs, click to edit/add: Vital Signs - 24 hr 02/07/25 20:10 02/07/25 21:00 02/07/25 21:46 Temperature 100.0 F H 99 F Pulse Rate [Pulse Oximeter] 99 85 Respiratory Rate 18 16 Blood Pressure [Ri ght Upper Arm] 104/73 124/76 Pulse Oximetry 96 96 Oxygen Delivery Me thod Room Air Room Air Course Vital Signs Vital signs: Initial Vital Signs Temperature 100.0 F H 02/07/25 20:10 Temperature Source Oral 02/07/25 20:10 Pulse Rate 99 02/07/25 20:10 Respiratory Rate 18 02/07/25 20:10 Blood Pressure 104/73 02/07/25 20:10 Blood Pressure Mean 83 02/07/25 20:10 Blood Pressure Position Sitting 02/07/25 20:10 Pulse Oximetry 96 02/07/25 20:10 Oxygen Delivery Method Room Air 02/07/25 20:10 Vital Signs Temperature 100.0 F H 02/07/25 20:10 Pulse Rate 99 02/07/25 20:10 Respiratory Rate 18 02/07/25 20:10 Blood Pressure 104/73 02/07/25 20:10 Pulse Oximetry 96 02/07/25 20:10 Oxygen Delivery Method Room Air 02/07/25 20:10 Temperature 99 F 02/07/25 21:46 Pulse Rate 85 02/07/25 21:00 Respiratory Rate 16 02/07/25 21:00 Blood Pressure 124/76 02/07/25 21:00 Pulse Oximetry 96 02/07/25 21:00 Oxygen Delivery Method Room Air 02/07/25 21:00 Medical Decision Making MDM Narrative Medical decision making narrative: Patient 69-year-old female presenting to the emergency department for respiratory issues no sore throat. Patient is not showing signs of peritonsillar abscess, Neal angina, retropharyngeal abscess,Lemierre disease or any other concerning oral pharynx or deep neck space abscesses. Imaging is not necessary. She is also having signs of a URI. With her history of will do a CT scan for better evaluation. She has not had a fever and the highest it has been has been 100. Will order CBC, BMP, magnesium along with viral swabs and a strep swab. CT scan of her chest reviewed by myself and the radiologist showed the solid tumor but there is nothing to compare to. Difficult to say if there is a viral or atypical pneumonia. She has no signs of aspiration on exam or history. BMP, magnesium showed no concerning abnormalities. Her sodium was slightly low at 129 but is not of a concerning level at this time. Swabs were negative. CBC returns with a white count 1.22 and absolute neutrophil count of 500. She is not technically have a fever Zofran does not meet criteria for neutropenic fever. Sweat this though I will start her on ciprofloxacin Augmentin. Her MASCC score is 22 which is low risk. She is safe for discharge. Lab Data Labs: Lab Results 02/07/25 02/07/25 Range/Units 20:25 21:43 WBC 1.22 L* (4.50-11.00) K/uL RBC 4.06 (4.00-5.20) m/uL Hgb 12.9 (12.0-16.0) gm/dL Hct 38.0 (33.0-51.0) % MCV 94 (80-100) fL MCH 32 (26-34) pg MCHC 34 (32-36) gm/dL RDW Coeff of Marco A 13.4 (11.5-15.5) % Plt Count 127 L (140-440) K/uL Neut % (Auto) 43.5 (42.0-72.0) % Lymph % (Auto) 38.5 (20-44) % Graham % (Auto) 15.6 H (0.0-11.0) % Eos % (Auto) 0.8 (0.0-7.0) % Baso % (Auto) 0.8 (0.0-3.0) % Neut # (Auto) 0.50 L (1.7-7.0) K/uL Lymph # (Auto) 0.50 L (0.90-2.90) K/uL Graham # (Auto) 0.20 (0.00-0.90) K/UL Eos # (Auto) 0.00 (0.00-0.50) K/uL Baso # (Auto) 0.00 (0.00-0.30) K/uL Abs Immat Gran (auto) 0.00 (0.00-0.30) K/uL Imm/Tot Granulo (auto) 0.8 % Diff Slide Review Acceptable Review (Acceptable) Sodium 129 L (135-149) mmol/L Potassium 4.0 (3.6-5.1) mmol/L Chloride 101 (96-114) mmol/L Carbon Dioxide 28 (20-32) mmol/L Anion Gap 0 L (7-15) mEq/L BUN 15 (7-30) mg/dL Creatinine 0.8 (0.5-1.5) mg/dL Estimated Creat Clear 53.09 Estimated GFR 81 ml/min Glucose 98 (60-115) mg/dL Calcium 7.4 L (8.4-10.6) mg/dL Magnesium 1.6 (1.5-2.6) mg/dL SARS-CoV-2 (PCR) Negative SARS-CoV-2 (Negative) Influenza Type A (PCR) Negative PCR FLU A (Negative) Influenza Type B (PCR) Negative PCR FLU B (Negative) RSV (PCR) Negative PCR RSV (Negative) Group A Strep DNA NOT DETECTED (Not Detectd) Imaging Data CT scan chest: Attestation: I have reviewed the pertinent imaging results. Radiologist's impression: Evaluation is somewhat limited due to the absence of comparison cross-sectional imaging. Note is made of a mass in the right perihilar/infrahilar space, likely corresponding to known malignancy. There is complete opacification of multiple bronchial branches to the right lower lobe with associated atelectasis and a small effusion. Note is also made of diffuse patchy pulmonary opacities in the bilateral lungs. Recommend correlation with prior imaging as well as history and symptoms to assess for aspiration and/or a viral or atypical pneumonia. Recommend 3 month interval follow-up CT, or sooner if per oncology. Please note that all CT scans at this facility use dose modulation, iterative reconstruction, and/or weight-based dosing when appropriate to reduce radiation dose to as low as reasonably achievable. Dictated by Lennox Hu MD @ 02/07/2025 9:35:23 PM Discharge Plan Discharge Clinical Impression: Pneumonia Qualifiers: Pneumonia type: due to unspecified organism Laterality: unspecified laterality Lung location: unspecified part of lung Qualified Code(s): J18.9 - Pneumonia, unspecified organism Patient Disposition: Home, Self-Care Condition: Stable Instructions: Community Acquired Pneumonia (DC) Additional Instructions: We cannot repeated with the see any pneumonia on your imaging but with your history I will treat you for pneumonia as your having some respiratory symptoms. Recommend close follow-up with your oncologist and return to emergency department for new or worsening symptoms. 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 Prescriptions: No Action ketoconazole 2 % shampoo topical dexamethasone 0.5 mg/5 mL solution 0.5 mg PO Q12H dexamethasone 0.5 mg/5 mL elixir 1 mg PO Q6H folic acid 1 mg tablet 1 mg PO DAILY lidocaine 5 % ointment topical rizatriptan 10 mg tablet 10 mg PO Q2H PRN (Reason: migraine) olanzapine 5 mg tablet 5 mg PO DAILY prochlorperazine maleate 10 mg tablet 10 mg PO Q6H PRN (Reason: nausea/vomiting) omeprazole 40 mg capsule,delayed release(DR/EC) 40 mg PO DAILY triamcinolone acetonide 0.1 % cream 1 applic topical BID-TID clindamycin phosphate 1 % gel 1 applic topical BID clobetasol 0.05 % ointment 1 applic topical BID ondansetron 4 mg tablet,disintegrating 4 mg PO Q8H PRN (Reason: nausea/vomiting) Follow Up/Referrals: Stuart Santos MD [Primary Care Provider, Family Practice] Stand Alone [facility]: [facility] Info Instructions
[2025-02-07 21:00] VITALS: BP 124/76; PULSE 85; RESP 16; O2SAT 96
[2025-02-07 21:06] LABS: Strep A DNA Probe* NOT DETECTED (Not Detectd)
[2025-02-07 21:19] LABS: PCR FLU A Negative PCR FLU A (Negative); PCR FLU B Negative PCR FLU B (Negative); PCR RSV Negative PCR RSV (Negative); SARS PCR* Negative SARS-CoV-2 (Negative)
[2025-02-07 21:46] VITALS: TEMP 37.2
[2025-02-07 22:02] LABS: Hematocrit* 38.0 % (33.0-51.0); Hemoglobin* 12.9 gm/dL (12.0-16.0); Immature Granulocytes Pct Auto 0.8 %; Mean Corpuscular HGB Conc 34 gm/dL (32-36); Mean Corpuscular Hemoglobin 32 pg (26-34); Mean Corpuscular Volume 94 fL (80-100); RDW Coefficient of Variation % 13.4 % (11.5-15.5); Red Blood Count* 4.06 m/uL (4.00-5.20)
[2025-02-07 22:09] LABS: Chloride* 101 mmol/L (96-114); Potassium* 4.0 mmol/L (3.6-5.1); Sodium* 129 mmol/L (135-149)
[2025-02-07 22:12] LABS: Anion Gap 0 mEq/L (7-15); Blood Urea Nitrogen* 15 mg/dL (7-30); Calcium* 7.4 mg/dL (8.4-10.6); Carbon Dioxide* 28 mmol/L (20-32); Creatinine* 0.8 mg/dL (0.5-1.5); Est. Creatinine Clearance* 53.09; Estimated Glomerular Filt Rate 81 ml/min; Glucose* 98 mg/dL (60-115)
[2025-02-07 22:59] LABS: Immature Granulocytes Abs Auto 0.00 K/uL (0.00-0.30); Lymphocytes Absolute Auto 0.50 K/uL (0.90-2.90); Slide Review Reflex Yes; White Blood Count* 1.22 K/uL (4.50-11.00)
[2025-02-07 23:01] LABS: Slide Review Acceptable Review (Acceptable)
[2025-02-07] MEDS: HEPARIN 500 UNIT/5 ML SYRINGE IVF (23:34)
== END 2025-02-07 23:34 | disposition home or self-care (01) ==
PROVIDERS: Emergency Provider Student in an Organized Health Care Education/Training Program; PCP Family Medicine
DX: J18.9 Pneumonia, unspecified organism (principal)
CPT/HCPCS: 36415; 71250; 80048; 83735; 85025; 87631; 87651; 99283; 99284; J1642